=== PATIENT | male | born 1955 | race Caucasian/White ===

== ENCOUNTER 2018-02-14 07:34 | Inpatient (IN) | payer BC ==
--- NOTE | 2018-02-14 08:02 | ED ---
General Adult HPI - General Chief complaint: Chest Pain Stated complaint: Chest Pain Time Seen by Provider: 02/14/18 07:48 Source: patient, RN notes reviewed, old records reviewed Mode of arrival: ambulatory Limitations: no limitations - History of Present Illness Initial comments: 61-year-old male presents for evaluation of chest pain. Patient states that on Tuesday which was 2 days ago he was working outside, he developed some upper chest pain which she described as tightness and this pain subsequently travel to his right arm and bilateral upper back. He had several episodes of vomiting associated with the pain. He did feel lightheaded. He rested throughout the day yesterday, he had some intermittent pain and one episode of nausea and vomiting. This morning the patient again developed pain which was upper substernal chest pain with associated nausea. Patient denies cough. Denies significant dyspnea. Denies abdominal pain. Denies fever or chills. No known history of CAD. No family history. Patient is a nonsmoker. He has no chronic medical problems. - Related Data Home Medications Medication Instructions Recorded Confirmed Levocetirizine Dihydrochloride 5 mg PO DAILY PRN 02/14/18 02/14/18 [Xyzal] Allergies Allergy/AdvReac Type Severity Reaction Status Date / Time No Known Allergies Allergy Verified 02/14/18 09:13 Review of Systems ROS Statement: Those systems with pertinent positive or pertinent negative responses have been documented in the HPI. ROS Other: All systems not noted in ROS Statement are negative. Past Medical History Past Medical History: No Reported History History of Any Multi-Drug Resistant Organisms: None Reported Past Surgical History: No Surgical Hx Reported Past Psychological History: No Psychological Hx Reported Smoking Status: Never smoker Past Alcohol Use History: Occasional Past Drug Use History: None Reported General Exam Limitations: no limitations Course Vital Signs 02/14/18 02/14/18 02/14/18 07:48 08:08 10:02 Temperature 99.0 F Pulse Rate 83 88 108 H Respiratory 18 18 22 Rate Blood Pressure 179/103 153/98 155/96 O2 Sat by Pulse 97 99 95 Oximetry EKG Findings - EKG Comments: EKG Findings:: EKG obtained at 741 shows sinus rhythm with sinus arrhythmia, Q- wave and T-wave inversion in inferior leads, rate of 80, MI interval 1:30, QRS duration 82, QTC [address] segment elevation. Repeat EKG at 1028 shows sinus tachycardia, left axis deviation, persistent signs of inferior infarct with Q waves and T-wave inversion. No ST segment elevation. Ventricular rate of 101, MI interval 1:30, QRS duration 84, QTC 456 Medical Decision Making - Medical Decision Making 62-year-old male presenting with 3 days of chest pain. Pain is typical in nature. EKG shows T-wave inversion and Q waves in the inferior leads. Chest x- ray shows some left basilar atelectasis no other acute findings. Laboratory studies reveal stable hemoglobin, normal kidney function, and significantly elevated troponin at 6.8. Patient is given morphine, aspirin, started on heparin infusion and nitroglycerin infusion. Given the ongoing pain case is discussed with Dr. Berrios from cardiology. He recommended stat echo and the patient will likely undergo heart catheterization today. Case also discussed with on-call physician Dr. Harper who will accept the admission. - Lab Data Result diagrams: 02/14/18 08:02 02/14/18 08:02 Lab Results 02/14/18 02/14/18 02/14/18 Range/Units 08:02 08:02 08:02 WBC 18.6 H (3.8-10.6) k/uL RBC 5.53 (4.30-5.90) m/uL Hgb 16.5 (13.0-17.5) gm/dL Hct 50.1 (39.0-53.0) % MCV 90.5 (80.0-100.0) fL MCH 29.8 (25.0-35.0) pg MCHC 33.0 (31.0-37.0) g/dL RDW 13.5 (11.5-15.5) % Plt Count 228 (150-450) k/uL Neutrophils % 84 % Lymphocytes % 10 % Monocytes % 5 % Eosinophils % 1 % Basophils % 0 % Neutrophils # 15.6 H (1.3-7.7) k/uL Lymphocytes # 1.8 (1.0-4.8) k/uL Monocytes # 0.9 (0-1.0) k/uL Eosinophils # 0.2 (0-0.7) k/uL Basophils # 0.0 (0-0.2) k/uL PT (9.0-12.0) sec INR (<1.2) APTT (22.0-30.0) sec Sodium 144 (137-145) mmol/L Potassium 4.1 (3.5-5.1) mmol/L Chloride 105 (98-107) mmol/L Carbon Dioxide 23 (22-30) mmol/L Anion Gap 16 mmol/L BUN 13 (9-20) mg/dL Creatinine 0.82 (0.66-1.25) mg/dL Est GFR (CKD-EPI)AfAm >90 (>60 ml/min/1.73 sqM) Est GFR (CKD-EPI)NonAf >90 (>60 ml/min/1.73 sqM) Glucose 125 H (74-99) mg/dL Calcium 9.7 (8.4-10.2) mg/dL Magnesium 1.8 (1.6-2.3) mg/dL Total Bilirubin 0.9 (0.2-1.3) mg/dL AST 100 H (17-59) U/L ALT 40 (21-72) U/L Alkaline Phosphatase 67 (38-126) U/L Total Creatine Kinase 502 H (55-170) U/L CK-MB (CK-2) 28.9 H* (0.0-2.4) ng/mL CK-MB (CK-2) Rel Index 5.8 Troponin I 6.810 H* (0.000-0.034) ng/mL NT-Pro-B Natriuret Pep pg/mL Total Protein 7.4 (6.3-8.2) g/dL Albumin 4.4 (3.5-5.0) g/dL Lipase 109 (23-300) U/L 02/14/18 02/14/18 Range/Units 08:02 08:02 WBC (3.8-10.6) k/uL RBC (4.30-5.90) m/uL Hgb (13.0-17.5) gm/dL Hct (39.0-53.0) % MCV (80.0-100.0) fL MCH (25.0-35.0) pg MCHC (31.0-37.0) g/dL RDW (11.5-15.5) % Plt Count (150-450) k/uL Neutrophils % % Lymphocytes % % Monocytes % % Eosinophils % % Basophils % % Neutrophils # (1.3-7.7) k/uL Lymphocytes # (1.0-4.8) k/uL Monocytes # (0-1.0) k/uL Eosinophils # (0-0.7) k/uL Basophils # (0-0.2) k/uL PT 11.1 (9.0-12.0) sec INR 1.2 H (<1.2) APTT 22.0 (22.0-30.0) sec Sodium (137-145) mmol/L Potassium (3.5-5.1) mmol/L Chloride (98-107) mmol/L Carbon Dioxide (22-30) mmol/L Anion Gap mmol/L BUN (9-20) mg/dL Creatinine (0.66-1.25) mg/dL Est GFR (CKD-EPI)AfAm (>60 ml/min/1.73 sqM) Est GFR (CKD-EPI)NonAf (>60 ml/min/1.73 sqM) Glucose (74-99) mg/dL Calcium (8.4-10.2) mg/dL Magnesium (1.6-2.3) mg/dL Total Bilirubin (0.2-1.3) mg/dL AST (17-59) U/L ALT (21-72) U/L Alkaline Phosphatase (38-126) U/L Total Creatine Kinase (55-170) U/L CK-MB (CK-2) (0.0-2.4) ng/mL CK-MB (CK-2) Rel Index Troponin I (0.000-0.034) ng/mL NT-Pro-B Natriuret Pep 1430 pg/mL Total Protein (6.3-8.2) g/dL Albumin (3.5-5.0) g/dL Lipase (23-300) U/L Critical Care Time Critical Care Time: Yes Total Critical Care Time: 35 Disposition Clinical Impression: NSTEMI (non-ST elevated myocardial infarction) Disposition: ADMITTED IP TO THIS [facility] Condition: Stable Is patient prescribed a controlled substance at d/c from ED?: No Referrals: None,Stated [Primary Care Provider] - 1-2 days Decision to Admit Reason: Admit from EC Decision Date: 02/14/18 Decision Time: 10:34
--- NOTE | 2018-02-14 08:15 | XR ---
EXAMINATION TYPE: XR chest 2V DATE OF EXAM: 02/14/2018 COMPARISON: NONE HISTORY: Chest pain TECHNIQUE: Frontal and lateral views of the chest are obtained. FINDINGS: There is no focal air space opacity, pleural effusion, or pneumothorax seen. The cardiac silhouette size is within normal limits. The patient is rotated and there are overlying cardiac leads . Strand-like densities are present at the left lung base. The osseous structures are intact. IMPRESSION: Possible basilar atelectasis or scarring, follow-up as indicated.
[2018-02-14 08:17] LABS: Basophils % (A) 0 %; Eosinophils # (A) 0.2 k/uL (0-0.7); Eosinophils % (A) 1 %; HCT 50.1 % (39.0-53.0); HGB 16.5 gm/dL (13.0-17.5); Lymphocytes # (A) 1.8 k/uL (1.0-4.8); Lymphocytes % (A) 10 %; MCH 29.8 pg (25.0-35.0); MCV 90.5 fL (80.0-100.0); Mean Platelet Volume 7.3; Monocytes # (A) 0.9 k/uL (0-1.0); Monocytes % (A) 5 %; Neutrophils # (A) 15.6 k/uL (1.3-7.7); Neutrophils % (A) 84 %; Platelet Count 228 k/uL (150-450); RBC 5.53 m/uL (4.30-5.90); RDW 13.5 % (11.5-15.5); WBC 18.6 k/uL (3.8-10.6)
[2018-02-14 08:32] LABS: ALT 40 U/L (21-72); AST 100 U/L (17-59); Albumin 4.4 g/dL (3.5-5.0); Alkaline Phosphatase 67 U/L (38-126); Anion Gap 16 mmol/L; Blood Urea Nitrogen 13 mg/dL (9-20); Calcium 9.7 mg/dL (8.4-10.2); Carbon Dioxide 23 mmol/L (22-30); Chloride 105 mmol/L (98-107); Glucose 125 mg/dL (74-99); Lipase 109 U/L (23-300); Magnesium 1.8 mg/dL (1.6-2.3); Potassium 4.1 mmol/L (3.5-5.1); Sodium 144 mmol/L (137-145); Total Bilirubin 0.9 mg/dL (0.2-1.3); Total Protein 7.4 g/dL (6.3-8.2)
[2018-02-14 08:33] LABS: INR 1.2 (<1.2); Prothrombin Time 11.1 sec (9.0-12.0)
[2018-02-14 09:04] LABS: Creatine Kinase MB 28.9 ng/mL (0.0-2.4); Troponin I 6.81 ng/mL (0.000-0.034)
[2018-02-14] MEDS ORDERED: HEPARIN SODIUM,PORCINE 5,000 UNIT/ML 1 ML VIAL IV PRN (09:07)
[2018-02-14] MEDS ORDERED: ASPIRIN 325 MG TAB PO STA (09:07)
[2018-02-14] MEDS ORDERED: HEPARIN SODIUM,PORCINE 5,000 UNIT/ML 1 ML VIAL IV ONE (09:07)
[2018-02-14] MEDS ORDERED: HEPARIN SODIUM,PORCINE/D5W PMX 25,000 UNIT in DEXTROSE/WATER 1 500ML.BAG IV SCH (09:15)
[2018-02-14] MEDS ORDERED: MORPHINE SULFATE 4 MG/ML SYRINGE IVP STA (09:38)
[2018-02-14] MEDS ORDERED: NITROGLYCERIN-D5W PMX 50 MG in DEXTROSE/WATER 1 250ML.BAG IV ONE (09:39)
[2018-02-14] MEDS ORDERED: ATORVASTATIN 80 MG TAB PO STA (09:43)
[2018-02-14] MEDS ORDERED: MORPHINE SULFATE 4 MG/ML SYRINGE IV PRN (10:22)
[2018-02-14] MEDS ORDERED: NALOXONE 0.4 MG/ML 1 ML VIAL IV PRN (10:22)
[2018-02-14 11:26] LABS: Glucose,Whole Blood 132 mg/dL (75-99)
--- NOTE | 2018-02-14 12:07 | ECHOF ---
Referral Reason:CP MEASUREMENTS -------- HEIGHT: 177.8 cm WEIGHT: 99.8 kg BP: RVIDd: 2.9 cm (< 3.3) IVSd: 1.2 cm (0.6 - 1.1) LVIDd: 3.8 cm (3.9 - 5.3) LVPWd: 1.3 cm (0.6 - 1.1) IVSs: 1.6 cm LVIDs: 2.3 cm LVPWs: 1.4 cm LAESV Index (A-L): 9.66 ml/m Ao Diam: 3.2 cm (2.0 - 3.7) AV Cusp: 1.8 cm (1.5 - 2.6) LA Diam: 2.9 cm (2.7 - 3.8) MV E Randell: 0.47 m/s MV DecT: 224 ms MV A Randell: 0.66 m/s MV E/A Ratio: 0.72 RAP: 5.00 mmHg RVSP: 9.51 mmHg FINDINGS -------- Sinus rhythm. This was a technically adequate study. The left ventricular size is normal. There is mild concentric left ventricular hypertrophy. Overa ll left ventricular systolic function is mildly impaired with, an EF between 45 - 50 %. Inferior Hy pokinesis The right ventricle is normal in size and function. Normal LA size by volume 22+/-6 ml/m2. The right atrium is normal in size. The aortic valve is trileaflet, and appears structurally normal. No aortic stenosis or regurgitation. The mitral valve leaflets are mildly thickened. There is trace to mild mitral regurgitation. Trace tricuspid regurgitation present. Right ventricular systolic pressure is normal at < 35 mmHg. There is no evidence of pulmonary hypertension. The pulmonic valve was not well visualized. The aortic root size is normal. Normal inferior vena cava with normal inspiratory collapse consistent with estimated right atrial pre ssure of 5 mmHg. There is no pericardial effusion. CONCLUSIONS -------- 1. Sinus rhythm. 2. This was a technically adequate study. 3. The left ventricular size is normal. 4. There is mild concentric left ventricular hypertrophy. 5. Overall left ventricular systolic function is mildly impaired with, an EF between 45 - 50 %. 6. Inferior Hypokinesis 7. Normal LA size by volume 22+/-6 ml/m2. 8. The aortic valve is trileaflet, and appears structurally normal. No aortic stenosis or regurgitati on. 9. The mitral valve leaflets are mildly thickened. 10. There is trace to mild mitral regurgitation. 11. Trace tricuspid regurgitation present. 12. Right ventricular systolic pressure is normal at < 35 mmHg. 13. There is no evidence of pulmonary hypertension. 14. The pulmonic valve was not well visualized. 15. The aortic root size is normal. 16. There is no pericardial effusion. MARINE INSULATOR: Del Diaz RDCS
[2018-02-14] MEDS ORDERED: LIDOCAINE 2% INJ 20 MG/ML (20 ML MDV) ONE (12:24)
[2018-02-14] MEDS ORDERED: MIDAZOLAM 2 MG/2 ML VIAL ONE (12:24)
[2018-02-14] MEDS ORDERED: diphenhydrAMINE 50 MG/ML 1 ML VIAL ONE (12:24)
[2018-02-14] MEDS ORDERED: MIDAZOLAM 2 MG/2 ML VIAL IVP ONE ×2 (12:39)
[2018-02-14] MEDS ORDERED: diphenhydrAMINE 50 MG/ML 1 ML VIAL IVP ONE (12:39)
[2018-02-14] MEDS ORDERED: IV FLUID CONTINUATION 900 ML IV ONE (12:39)
[2018-02-14] MEDS ORDERED: METOPROLOL TARTRATE 5 MG/5 ML VIAL IVP ONE ×2 (12:40→12:43)
[2018-02-14] MEDS ORDERED: LIDOCAINE 2% INJ 20 MG/ML SQ ONE (12:44)
[2018-02-14] MEDS ORDERED: BIVALIRUDIN BOLUS 250 MG/50 ML IV ONE (12:55)
[2018-02-14] MEDS ORDERED: BIVALIRUDIN 250 MG in SODIUM CHLORIDE 0.9% 50 ML IV ONE ×2 (12:56→14:27)
[2018-02-14] MEDS ORDERED: IOPAMIDOL-370 100ML BTL INJ ONE ×4 (13:00→14:41)
--- NOTE | 2018-02-14 13:04 | CONS ---
CONSULTATION This is a 62-year-old gentleman who works as a general maintenance engineer at the [employer]. He was out on Tuesday shooting carp in the [place] with a bow and arrow and after he finished that, when he was driving home, he felt some uncomfortable feeling and dizzy, lightheaded sensation and a fluttering feeling in the chest. He then had chest pressure, but he thought it would go away and he went to bed. Next day he felt pretty much uncomfortable, nauseated, had some emesis. However, he did not come to the emergency room or seek any medical attention. Finally, he had some upper chest and arm pain as he was doing some physical activity and then came into the hospital. He had some episodes of nausea and vomiting. Substernal discomfort seemed to have recurred again this morning, which got his attention and he came into the hospital. His troponin is elevated, inferior leads on the EKG suggest recent myocardial infarction. He still has some discomfort, but not in any severe distress. It appears that his infarction may have been completed and now has post infarct angina. He is not a smoker. He has no major coronary risk factors. He does not take any regular medications. He is resting comfortably at the time of my evaluation. PAST MEDICAL HISTORY: Unremarkable for any hypertension, diabetes, myocardial infarction or CVA. ALLERGIES: None. MEDICATIONS: He takes some cetirizine dihydrochloride for his allergies. SOCIAL HISTORY: Patient is not a smoker. Consumes alcohol occasionally. REVIEW OF SYSTEMS: Unremarkable other than the above-mentioned facts. EKG revealed sinus mechanism with inferior Q-waves and ST-T coving suggestive of recent inferior AL. No acute changes. LABORATORY DATA: Suggested elevated white count. Troponin is up to 6.8. His electrolytes and renal function are normal. PHYSICAL EXAMINATION: Blood pressure is 140/78, pulse rate is about 90 per minute, regular. HEENT: Unremarkable. Fundus was not examined by me. NECK: Supple. There is no JVD. I do not hear a carotid bruit. There is no thyromegaly. Heart exam reveals S1, S2, heard normally with some occasional irregularity in rhythm. Lungs are clear. Abdomen is soft, nontender. Lower extremities reveal normal pulses. No edema. Central nervous system is normal. IMPRESSION: 1. Completed inferior myocardial infarction with post infarction angina. Onset of chest pain is almost 36 hours ago. Patient still has mild chest discomfort. 2. No evidence of any other major risk factors. RECOMMENDATION: I am recommending that we will continue aspirin, heparin. He has received Lipitor and beta shawn and we will proceed with coronary angiography based on findings, further recommendations will be made. I discussed my thoughts in detail with the patient. Thank you very much for the consult. SHANIKA / ALICE: [id number] /
[2018-02-14] MEDS ORDERED: niCARdipine 25 MG/10 ML VIAL ONE (14:01)
[2018-02-14] MEDS ORDERED: niCARdipine Syringe (1,000 mcg/10 mL) INTRACORON ONE (14:09)
[2018-02-14] MEDS ORDERED: NITROGLYCERIN 1000MCG/10ML SYRINGE INTRACORON ONE (14:15)
[2018-02-14] MEDS ORDERED: NITROGLYCERIN SL TABS 0.4 MG TAB SUBLINGUAL ONE ×2 (14:40→14:41)
[2018-02-14] MEDS ORDERED: TICAGRELOR 90 MG TAB ONE (14:42)
[2018-02-14] MEDS ORDERED: TICAGRELOR 90 MG TAB PO ONE (14:47)
[2018-02-14] MEDS ORDERED: MAG HYDROX/AL HYDROX/SIMETH 30 ML CUP PO PRN (14:49)
[2018-02-14] MEDS ORDERED: NITROGLYCERIN SL TABS 0.4 MG TAB SUBLINGUAL PRN (14:49)
[2018-02-14] MEDS ORDERED: RX INFO: IV CONTRAST WAS GIVEN 1 EACH MISC MISCELLANE PRN (14:49)
[2018-02-14] MEDS ORDERED: ATROPINE SULFATE 0.1 MG/ML 10ML SYRINGE IV PRN (14:49)
[2018-02-14] MEDS ORDERED: ZOLPIDEM 5 MG TAB PO PRN (14:49)
[2018-02-14] MEDS: SODIUM CHLORIDE 0.9% 1,000 ML IV SCH (15:15)
[2018-02-14 16:17] LABS: Creatine Kinase MB 16.7 ng/mL (0.0-2.4)
[2018-02-14 16:18] LABS: Troponin I 7.97 ng/mL (0.000-0.034)
[2018-02-14] MEDS: ATORVASTATIN 80 MG TAB PO SCH (20:23)
--- NOTE | 2018-02-14 21:19 | LTR ---
Dear Dr. Harper: Thank you for for allowing me to participate in the care of Mr. Xavier Stover. Please find enclosed my detailed report for your records. I performed stenting of a dominant RCA and PLV branch. PDA is collateralized from the left system. I will perform staged intervention of the circumflex groove branch. Thank you for your referral. Please call for questions. With kindest regards. Sincerely yours, MMODL / IJN: [id number] /
--- NOTE | 2018-02-14 21:19 | CC ---
CARDIAC CATHETERIZATION REPORT DATE OF SERVICE: 02/14/2018 PROCEDURE: 1. Coronary angiography. 2. 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 PERFORMED BY: Dr. Sun Berrios. Moderate conscious sedation time was 2 hours and 2 minutes. Patient was administered Versed and Benadryl and his oxygen saturation, hemodynamics and EKG were monitored closely. CLINICAL INFORMATION: Mr. Xavier Stover is a 62-year-old gentleman who was seen by me in the emergency room with an episode of chest pain and his clinical presentation suggested that of an acute GA probably 36 hours ago, but he had ongoing chest pain, was therefore advised coronary angiography. There was evidence of inferior Q-waves and inferobasal lateral hypokinesia. Risks, benefits, options were explained to the patient. He understood all details and wished to proceed with the procedure. PROCEDURE NOTE: Under local anesthesia and strict aseptic precautions, a 6-Belizean introducer was placed in the right femoral artery. Using a standard left Chele catheter, I performed selective coronary angiography of the left coronary system, then used a guide catheter for the right coronary. I did not perform an LV-gram or check LV pressures. I noted that his RCA was very large dominant vessel that was totally occluded and the PDA was actually filling from collaterals from the left system. There was also a circumflex a groove branch that had a significant stenosis as well with some haziness. This could have been a culprit lesion, but it was also evident that RCA was a significant lesion as well. It appeared that RCA was a chronic total occlusion and the groove branch that had 2 additional distal branches of circumflex was probably the more acute lesion. However, the flow in the circumflex was brisk. After coronary angiography, I decided to perform intervention and proceeded to perform the SPECIAL TAX AUDITOR intervention of her dominant RCA. PERCUTANEOUS CORONARY ANGIOPLASTY PROCEDURE DETAILS: I used a standard right Chele guide catheter of 6-Belizean caliber. Using a run- through wire, I tried to cross the lesion, did not make much progress. I then switched over to a BMW wire, which was a long one with a wire. With this, I was able to cross the lesion and I gave multiple inflations with a 2.5, 12 mm NC Trek balloon and then switched over to a longer 20 mm 3.0 balloon. With multiple inflations, there was improvement, but there appeared to be a substantial amount of thrombus in the system. After multiple dilations, I decided to place a stent at the site of total occlusion. I used a 3.5 caliber 15 mm long stent in the proximal total occlusion site and beyond that, I used a 23 mm long 3.0 caliber Xience stent. In between, I used a 12 mm Xience stent, but then went on to add another 8 mm between the 15 mm and 12 mm stents. The wire was kept in the PLV branch and then later on in the PDA branch. The PDA branch was already receiving collaterals from the left system. After some deliberation, I noted that there was a subtotal occlusion of the PLV branch and this was addressed with a 2.5 caliber 8 mm Xience stent. I was able to open up the PLV with remarkably good angiographic appearance flow. In the end, there was good angiographic appearance of the entire RCA, both proximal mid and distal portions of the PLV branch, but the PDA seems to have subtotal occlusion, but PDA was already collateralized from the left system. This was a long procedure. I used double wires her initially to gain access and then after that, I was able to deploy several stents. All of these were drug- eluting stents. Very proximally, there was a 3.5 caliber 15 mm stent and very distally in the PLV, there is a 2.5 caliber 8 mm Xience stent. I then tried to advance the wire into the PDA. I was able to do it, but could not advance the stent or a balloon because of considerable difficulty, since the stent in the PLV seems to be right at the origin. Since PDA branch was already collateralized, I decided not persist with it. In the end, excellent angiographic result was achieved of the LAD and PLV, but PDA was totally occluded with collateralization of the left system. Several drug-eluting stents were deployed. CORONARY ANGIOGRAPHY FINDINGS: Left main coronary artery: This vessel is short, patent, bifurcates into LAD and circumflex without significant disease. Left anterior descending coronary artery: Good caliber vessel extends along the anterior wall, gives off septal and diagonal branches, has minor irregularities, gives off a fair-sized diagonal branch in the midportion, runs toward the apex and supplies the distal and inferoapical wall. There are several septal branches from the LAD that are collateralizing the entire PDA branch of RCA. Left posterior circumflex coronary artery: This is a nondominant vessel, gives off a single large obtuse marginal, then there is a groove branch. The groove branch has about a 70% stenosis with haziness which may be the culprit lesion. This then subdivides into 2 smaller branches. It appears that the groove branch maybe also the culprit vessel. The 2 small branches are of about 2 mm length and supplies a fair amount of myocardium and the groove branch itself is about 2.5 caliber. There is a left atrial circumflex that is free of significant disease as well. Right coronary artery: This is a very dominant vessel, totally occluded in the proximal portion after 2 small acute marginal branches. The RCA is collateralized from the left system with the PDA filling from the septal branches of LAD. FINAL IMPRESSION: 1. This patient has total occlusion of a dominant right coronary artery, which is probably a chronic total occlusion, and also is 80% stenosis in the groove branch of circumflex as well, which subdivides into 2 further branches. Left anterior descending has no significant disease and I did not check LV pressures. 2. Percutaneous intervention of his chronic total occlusion of the right coronary artery was performed with excellent result. The posterior descending artery was not opened up, but it was filling from collaterals from the left system. 3. Results were discussed with the patient and his family members, specifically his . SHANIKA / ALICE: [id number] /
--- NOTE | 2018-02-14 21:33 | HP ---
HISTORY AND PHYSICAL CHIEF COMPLAINT: Non-STEMI. HISTORY OF PRESENT ILLNESS: This is the first admission for this 62-year-old white male, [place] he felt a little bit dizzy on Tuesday. He felt a little discomfort in the sternal notch and some pain in the back of both of his upper arms. He decided that he should drive back to [place] which he did alone. At one point, the pain got worse and he had to picker/puller. He had slight nausea and diaphoresis and a little bit of epigastric pain. He went home and felt a little bit worse during the night and came in the morning and was found to have an acute non ST-segment elevation FL. He was taken to the boat laborer, where apparently there were 5 significant blockages. Four of which were stented and he may require 2nd sitting for the other. Otherwise, he has been healthy. He has not had anything abnormal lately and he does not go to doctor and does not take any medications. REVIEW OF SYSTEMS: He has had no neurologic problems, change in vision or hearing, hemoptysis, murmurs, fever, heart disease, orthopnea, PND, nausea, vomiting, hematemesis, melena, hematochezia, jaundice, hepatitis, pancreatitis, renal failure, diabetes, etc. Past medical history, family history, personal and social histories are essentially unremarkable and noncontributory. He is not allergic to any medication. He does not take any. The only surgery he has had is a procedure on his right knee and appendectomy. He does not smoke. Drinks occasionally. He does not know by his family history because he is adopted. 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 PHYSICAL EXAMINATION: Blood pressure is 111/80, pulse 73, respirations of 20, he is afebrile. GENERAL: In general, appeared to be well developed, well nourished, no acute distress. SKIN color is normal skin is warm, dry. LYMPH nodes not enlarged. HEENT: Head, ears, eyes, nose, mouth, and throat were normal. NECK veins not distended. Thyroid is not enlarged. CHEST is clear. CARDIAC exam is normal. ABDOMEN is soft, nontender. EXTREMITIES: Normal. NEUROLOGICAL is intact. IMPRESSION: Non-ST elevation myocardial infarction. PLAN: Continue to follow with Cardiology. He may require another sitting. The lipid profile has been ordered. MMODL / IJN: [id number] /
[2018-02-14 21:44] LABS: Creatine Kinase MB 12.6 ng/mL (0.0-2.4); Troponin I 7.91 ng/mL (0.000-0.034)
[2018-02-15 04:12] LABS: Basophils % (A) 0 %; Eosinophils % (A) 0 %; HGB 14.2 gm/dL (13.0-17.5); Lymphocytes # (A) 1.6 k/uL (1.0-4.8); Lymphocytes % (A) 12 %; MCH 30.7 pg (25.0-35.0); MCHC 33.8 g/dL (31.0-37.0); MCV 90.6 fL (80.0-100.0); Mean Platelet Volume 7.6; Monocytes # (A) 1.2 k/uL (0-1.0); Monocytes % (A) 9 %; Neutrophils # (A) 10.7 k/uL (1.3-7.7); Neutrophils % (A) 78 %; Platelet Count 194 k/uL (150-450); RBC 4.64 m/uL (4.30-5.90); RDW 13.4 % (11.5-15.5); WBC 13.8 k/uL (3.8-10.6)
[2018-02-15 04:15] LABS: Hemoglobin A1C 5.6 % (4.0-6.0)
[2018-02-15 04:34] LABS: Anion Gap 10 mmol/L; Blood Urea Nitrogen 14 mg/dL (9-20); Calcium 8.8 mg/dL (8.4-10.2); Carbon Dioxide 26 mmol/L (22-30); Chloride 105 mmol/L (98-107); Cholesterol 118 mg/dL (<200); Glucose 110 mg/dL (74-99); HDL Cholesterol 36 mg/dL (40-60); LDL Cholesterol,Calculated 65 mg/dL (0-99); Potassium 4.1 mmol/L (3.5-5.1); Sodium 141 mmol/L (137-145); Triglycerides 83 mg/dL (<150)
[2018-02-15] MEDS: SODIUM CHLORIDE 0.9% 1,000 ML IV SCH (06:57)
[2018-02-15] MEDS: ASPIRIN 81 MG PO SCH (09:05)
[2018-02-15] MEDS: LISINOPRIL 10 MG TAB PO SCH (09:05)
[2018-02-15] MEDS: TICAGRELOR 90 MG TAB PO SCH ×2 (09:06→20:46)
[2018-02-15] MEDS: DILTIAZEM 50 MG in SODIUM CHLORIDE 0.9% 40 ML IV SCH ×5 (10:32→20:48)
[2018-02-15 11:10] LABS: Magnesium 2.1 mg/dL (1.6-2.3); Potassium 3.8 mmol/L (3.5-5.1)
[2018-02-15] MEDS ORDERED: DEXTROSE 5% IN WATER 100 ML with AMIODARONE 150 MG IV ONE (12:35)
[2018-02-15] MEDS ORDERED: POTASSIUM CHLORIDE ER 20 MEQ TAB.ER PO STA (12:40)
[2018-02-15] MEDS: AMIODARONE 450 MG in DEXTROSE 5% IN WATER 250 ML IV SCH ×4 (14:59→22:48)
--- NOTE | 2018-02-15 17:16 | PN ---
PROGRESS NOTE Mr. Stover suffered from an acute inferior OH probably in the last 72 hours. Yesterday I performed stenting of a totally occluded RCA with a good result. He was asymptomatic. Doing well. His right groin is clean and dry. Vital signs stable, but he went into atrial fib this morning. Troponin profile suggests no additional myocardial injury. His troponin was 6.8, went up to 7.9. He is in atrial fib, moderate ventricular rate. I am recommending that we give him Cardizem bolus and drip and also amiodarone to see if he will convert to sinus rhythm. His vital signs are stable. S1-S2 heard normally. Lungs are clear. Abdomen and lower extremity exam is unchanged. I will also repeat an echocardiogram tomorrow and we will continue his current medications and see how he does. I explained to the patient and that we will consider circumflex intervention, but we will see how he progresses. He is now in atrial fib. Rate control is moderate and renal function is well preserved. EKG and labs were reviewed. MMROYAL / IJN: [id number] /
--- NOTE | 2018-02-15 20:16 | PN ---
PROGRESS NOTE CHIEF COMPLAINT: Status post KS. HISTORY OF PRESENT ILLNESS: This gentleman is comfortable and he has had no palpitations, chest pain, shortness of breath, arrhythmias, etc. PHYSICAL EXAM: Skin is warm and dry. Head ears, eyes, nose, mouth and throat are normal. Chest is clear. Cardiac is normal. Right leg is normal. IMPRESSION: Status post acute myocardial infarction with coronary artery stents. PLAN: Increase activity. He can probably move to telemetry. He has another procedure coming up later in the week. MMODL / IJN: [id number] /
[2018-02-15] MEDS: ATORVASTATIN 80 MG TAB PO SCH (20:46)
[2018-02-16 05:55] LABS: Anion Gap 9 mmol/L; Blood Urea Nitrogen 16 mg/dL (9-20); Calcium 8.9 mg/dL (8.4-10.2); Carbon Dioxide 26 mmol/L (22-30); Chloride 105 mmol/L (98-107); Glucose 111 mg/dL (74-99); Potassium 3.8 mmol/L (3.5-5.1); Sodium 140 mmol/L (137-145)
[2018-02-16 05:58] LABS: Basophils % (A) 0 %; Eosinophils # (A) 0.1 k/uL (0-0.7); Eosinophils % (A) 1 %; HCT 41.6 % (39.0-53.0); HGB 13.9 gm/dL (13.0-17.5); Lymphocytes # (A) 1.6 k/uL (1.0-4.8); Lymphocytes % (A) 12 %; MCH 30.7 pg (25.0-35.0); MCHC 33.4 g/dL (31.0-37.0); MCV 91.9 fL (80.0-100.0); Mean Platelet Volume 7.3; Monocytes # (A) 0.9 k/uL (0-1.0); Monocytes % (A) 7 %; Neutrophils # (A) 10.2 k/uL (1.3-7.7); Neutrophils % (A) 78 %; Platelet Count 203 k/uL (150-450); RBC 4.53 m/uL (4.30-5.90); RDW 13.5 % (11.5-15.5)
[2018-02-16] MEDS: DILTIAZEM 50 MG in SODIUM CHLORIDE 0.9% 40 ML IV SCH ×3 (06:08→12:08)
[2018-02-16] MEDS ORDERED: POTASSIUM CHLORIDE ER 20 MEQ TAB.ER PO SCH (07:00)
[2018-02-16] MEDS: AMIODARONE 450 MG in DEXTROSE 5% IN WATER 250 ML IV SCH ×2 (07:11)
[2018-02-16] MEDS: TICAGRELOR 90 MG TAB PO SCH ×2 (08:38→20:12)
[2018-02-16] MEDS: ASPIRIN 81 MG PO SCH (08:38)
[2018-02-16] MEDS: LISINOPRIL 10 MG TAB PO SCH (08:38)
[2018-02-16] MEDS ORDERED: MORPHINE ORAL SOLN 10 MG/5 ML CUP PO PRN (10:40)
[2018-02-16] MEDS: AMIODARONE 200 MG TAB PO SCH ×2 (10:45→20:11)
--- NOTE | 2018-02-16 16:50 | PN ---
PROGRESS NOTE DATE OF SERVICE: 02/16/2018. HISTORY: Mr. Stover is a gentleman who underwent stenting of the right coronary artery chronic total occlusion. He is doing well. He was in atrial fib yesterday, he is back to sinus rhythm Hemodynamically stable. Right groin is clean and dry. He also has a circumflex lesion which requires intervention. I am recommending that we switch him from IV to p.o. amiodarone, decrease the lisinopril to 5 mg daily, start him on Coreg 3.125 mg b.i.d., continue telemetry, continue the rest of his other medications, and move him to telemetry and consider performing intervention of the circumflex after checking the patency of RCA on Tuesday. PHYSICAL EXAM: There are no new significant findings. Vital signs are stable. S1 and S2 heard normally. Lungs are clear. Abdomen and lower extremities are unchanged. Right groin is clean and dry. MMODL / IJN: [id number] /
[2018-02-16] MEDS: CARVEDILOL 3.125 MG TAB PO SCH (17:14)
--- NOTE | 2018-02-16 18:08 | PN ---
PROGRESS NOTE DATE OF SERVICE: 02/16/2018. CHIEF COMPLAINT: Acute [place]. HISTORY OF PRESENT ILLNESS: This gentleman is doing well. He is having an echocardiogram today. He is having no pain. He has had no arrhythmias. PHYSICAL EXAM: Vital signs are normal. Color is good. Chest is clear. Cardiac exam is normal. The abdomen is soft, nontender. IMPRESSION: 1. Status post myocardial infarction. 2. Coronary artery disease. PLAN: He is to have another procedure for the circumflex later in the week. He will have echocardiogram today. MMODL / IJN: [id number] /
--- NOTE | 2018-02-16 20:02 | ECHOF ---
Referral Reason:to assess cardiac function MEASUREMENTS -------- HEIGHT: 177.8 cm WEIGHT: 104.8 kg BP: 109/69 RVIDd: 3.0 cm (< 3.3) IVSd: 1.1 cm (0.6 - 1.1) LVIDd: 3.1 cm (3.9 - 5.3) LVPWd: 1.0 cm (0.6 - 1.1) IVSs: 1.4 cm LVIDs: 2.5 cm LVPWs: 1.4 cm Ao Diam: 3.1 cm (2.0 - 3.7) AV Cusp: 2.1 cm (1.5 - 2.6) LA Diam: 2.7 cm (2.7 - 3.8) FINDINGS -------- Sinus rhythm. This was a technically adequate study. Limited Study for assessment of left ventricular function. The left ventricular size is normal. There is borderline concentric left ventricular hypertrophy. Overall left ventricular systolic function is normal with, an EF between 55 - 60 %. The right ventricle is normal in size and function. There is no pericardial effusion. CONCLUSIONS -------- 1. Sinus rhythm. 2. This was a technically adequate study. 3. Limited Study for assessment of left ventricular function. 4. The left ventricular size is normal. 5. There is borderline concentric left ventricular hypertrophy. 6. Overall left ventricular systolic function is normal with, an EF between 55 - 60 %. 7. There is no pericardial effusion. FLOTATION TANK OPERATOR: Del Diaz [facility]
[2018-02-16] MEDS: ATORVASTATIN 80 MG TAB PO SCH (20:11)
[2018-02-16] MEDS ORDERED: LISINOPRIL 5 MG TAB PO SCH (21:00)
[2018-02-17 04:29] LABS: Basophils % (A) 0 %; Eosinophils # (A) 0.3 k/uL (0-0.7); Eosinophils % (A) 2 %; HCT 40.2 % (39.0-53.0); HGB 13.5 gm/dL (13.0-17.5); Lymphocytes # (A) 1.5 k/uL (1.0-4.8); Lymphocytes % (A) 11 %; MCH 30.3 pg (25.0-35.0); MCHC 33.5 g/dL (31.0-37.0); MCV 90.6 fL (80.0-100.0); Mean Platelet Volume 7.6; Monocytes % (A) 7 %; Neutrophils # (A) 10.8 k/uL (1.3-7.7); Neutrophils % (A) 79 %; Platelet Count 207 k/uL (150-450); RBC 4.44 m/uL (4.30-5.90); RDW 13.5 % (11.5-15.5); WBC 13.8 k/uL (3.8-10.6)
[2018-02-17 04:39] LABS: Anion Gap 11 mmol/L; Blood Urea Nitrogen 18 mg/dL (9-20); Calcium 9.2 mg/dL (8.4-10.2); Carbon Dioxide 25 mmol/L (22-30); Chloride 105 mmol/L (98-107); Glucose 107 mg/dL (74-99); Potassium 3.9 mmol/L (3.5-5.1); Sodium 141 mmol/L (137-145)
[2018-02-17] MEDS: AMIODARONE 200 MG TAB PO SCH ×2 (08:32→20:10)
[2018-02-17] MEDS: ASPIRIN 81 MG PO SCH (08:35)
[2018-02-17] MEDS: TICAGRELOR 90 MG TAB PO SCH ×2 (08:35→20:10)
[2018-02-17] MEDS: CARVEDILOL 3.125 MG TAB PO SCH ×2 (08:35→17:33)
[2018-02-17] MEDS: SODIUM CHLORIDE 0.9% 1,000 ML IV SCH ×2 (10:55→21:00)
[2018-02-17] MEDS ORDERED: ALPRAZolam 0.5 MG TAB PO PRN (11:06)
[2018-02-17] MEDS ORDERED: ALPRAZolam 0.25 MG TAB PO PRN (11:06)
--- NOTE | 2018-02-17 15:51 | PN ---
PROGRESS NOTE Mr. Stover is doing very well. This gentleman underwent stenting of a totally occluded RCA that was performed. LV function is good. He feels well. His blood pressure is somewhat low. I will discontinue lisinopril. Increase oral fluids. Increase activity. Move him to telemetry and tomorrow I will perform intervention of his circumflex vessel which is a groove branch which has significant amount of myocardium being supplied by it. I will perform procedure from the right radial approach. Rationale, risks, benefits and options were explained to patient and his . They understand and wish to proceed with the procedure. MMODL / IJN: [id number] /
--- NOTE | 2018-02-17 17:03 | PN ---
PROGRESS NOTE DATE OF SERVICE: 02/17/2018 CHIEF COMPLAINT: Acute [place]. HISTORY OF PRESENT ILLNESS: This gentleman is doing well and he is stable. He is going for another stent tomorrow. PHYSICAL EXAMINATION: CHEST: Clear. Cardiac exam is normal. Abdomen is soft, nontender. There are no murmurs and he is in sinus rhythm. Vital signs are normal. IMPRESSION: Coronary artery disease. PLAN: Second stenting tomorrow. MMODL / IJN: [id number] /
[2018-02-17] MEDS: ATORVASTATIN 80 MG TAB PO SCH (20:10)
[2018-02-18] MEDS: CARVEDILOL 3.125 MG TAB PO SCH ×2 (06:28→18:15)
[2018-02-18] MEDS: AMIODARONE 200 MG TAB PO SCH ×2 (06:28→21:01)
[2018-02-18] MEDS: SODIUM CHLORIDE 0.9% 1,000 ML IV SCH ×3 (06:28→18:15)
[2018-02-18] MEDS: ASPIRIN 81 MG PO SCH (06:29)
[2018-02-18] MEDS: TICAGRELOR 90 MG TAB PO SCH ×2 (06:29→21:01)
[2018-02-18 06:43] LABS: Basophils % (A) 0 %; Eosinophils # (A) 0.2 k/uL (0-0.7); Eosinophils % (A) 1 %; HCT 39.6 % (39.0-53.0); Lymphocytes # (A) 1.6 k/uL (1.0-4.8); Lymphocytes % (A) 11 %; MCH 30.5 pg (25.0-35.0); MCHC 32.8 g/dL (31.0-37.0); Mean Platelet Volume 7.2; Monocytes # (A) 0.9 k/uL (0-1.0); Monocytes % (A) 6 %; Neutrophils # (A) 11.2 k/uL (1.3-7.7); Neutrophils % (A) 80 %; Platelet Count 231 k/uL (150-450); RBC 4.26 m/uL (4.30-5.90); RDW 13.4 % (11.5-15.5)
[2018-02-18 13:30] VITALS: BMI 32.5
[2018-02-18] MEDS ORDERED: LIDOCAINE 2% INJ 20 MG/ML (20 ML MDV) ONE (13:39)
[2018-02-18] MEDS ORDERED: VERAPAMIL 2.5 MG/ML 2 ML AMP ONE ×2 (13:39→13:40)
[2018-02-18] MEDS ORDERED: SODIUM CHLORIDE 0.9% 1,000 ML IV ONE (13:49)
[2018-02-18] MEDS ORDERED: MIDAZOLAM 2 MG/2 ML VIAL ONE (13:51)
[2018-02-18] MEDS ORDERED: diphenhydrAMINE 50 MG/ML 1 ML VIAL ONE (13:51)
[2018-02-18] MEDS ORDERED: HEPARIN SODIUM 1,000 UN/ML (10ML VL) ONE (13:53)
--- NOTE | 2018-02-18 13:53 | PN ---
PROGRESS NOTE CHIEF COMPLAINT: Coronary artery disease. HISTORY OF PRESENT ILLNESS: This gentleman is resting and having no problems. He awaits his second procedure. PHYSICAL EXAMINATION: Deferred because the patient is currently asleep. IMPRESSION: Coronary artery disease, status post myocardial infarction. PLAN: Await second procedure. SHANIKA / MAGALYN: [id number] /
[2018-02-18] MEDS ORDERED: diphenhydrAMINE 50 MG/ML 1 ML VIAL IVP ONE (13:56)
[2018-02-18] MEDS ORDERED: MIDAZOLAM 2 MG/2 ML VIAL IVP ONE (14:08)
[2018-02-18] MEDS ORDERED: LIDOCAINE 2% INJ 20 MG/ML SQ ONE ×2 (14:08→15:02)
[2018-02-18] MEDS: VERAPAMIL SYRINGE (5 MG/10 ML) INTRAARTER ONE ×2 (14:09→14:51)
[2018-02-18] MEDS ORDERED: BIVALIRUDIN BOLUS 250 MG/50 ML IV ONE (14:21)
[2018-02-18] MEDS ORDERED: BIVALIRUDIN 250 MG in SODIUM CHLORIDE 0.9% 50 ML IV ONE ×2 (14:21→15:01)
[2018-02-18] MEDS ORDERED: IOPAMIDOL-370 125ML BTL INJ ONE (14:30)
[2018-02-18] MEDS: NITROGLYCERIN 1000MCG/10ML SYRINGE INTRAARTER ONE ×3 (14:54→16:17)
[2018-02-18] MEDS ORDERED: IOPAMIDOL-370 100ML BTL INJ ONE ×2 (15:20→16:18)
[2018-02-18] MEDS ORDERED: TICAGRELOR 90 MG TAB ONE (16:34)
[2018-02-18] MEDS ORDERED: TICAGRELOR 90 MG TAB PO ONE (16:35)
[2018-02-18] MEDS ORDERED: ATROPINE SULFATE 0.1 MG/ML 10ML SYRINGE IV PRN (16:57)
[2018-02-18] MEDS ORDERED: MAG HYDROX/AL HYDROX/SIMETH 30 ML CUP PO PRN (16:57)
[2018-02-18] MEDS ORDERED: NITROGLYCERIN SL TABS 0.4 MG TAB SUBLINGUAL PRN (16:57)
[2018-02-18] MEDS ORDERED: RX INFO: IV CONTRAST WAS GIVEN 1 EACH MISC MISCELLANE PRN (16:57)
[2018-02-18] MEDS ORDERED: ZOLPIDEM 5 MG TAB PO PRN (16:57)
--- NOTE | 2018-02-18 17:41 | PTCA ---
PERCUTANEOUSTRANS CORORONARY ANGIOGRAPHY DATE OF SERVICE: 02/18/2018. PROCEDURES: 1. Percutaneous transluminal coronary angioplasty and stenting of mid circumflex coronary artery, which was actually a groove branch, with a drug-eluting stent and a bare metal stent. 2. Percutaneous transluminal coronary angioplasty and stenting of mid right coronary artery with a drug-eluting stent. PERFORMED BY: Dr. Bentley Berrios. Moderate conscious sedation time was 138 minutes. Patient was administered Versed, Benadryl, and oxygen saturation and hemodynamics and EKG were monitored closely. CLINICAL INFORMATION: Mr. Xavier Stover is a gentleman who presented earlier in the week with a non-ST- elevation VT or probably after a myocardial infarction that occurred 48 hours prior to arrival, when he was found to have a totally occluded RCA that was stented on the of this month. There was a PDA branch that was subtotally occluded but was collateralized from the left system. I brought him in for a staged intervention of circumflex, which was also a significant lesion. I advised the patient I will try from the right radial approach. PROCEDURE NOTE: Under local anesthesia and strict aseptic precautions, a 6-Moroccan introducer was placed in the right radial artery. Using a 3.5 curved right Chele catheter, I performed selective coronary angiography and noted that the RCA was patent, but in the mid portion there was about a 60% to 70% narrowing within a previously placed stent. I then turned my attention to the left circumflex coronary artery. Initially I used an Ikari 3.5 curved guide. With this I was able to cannulate the left coronary artery. Using a run-through wire, I crossed the lesion and wire was kept distally. I had considerable difficulty getting into the mid circumflex lesion, which had a 99% stenosis. The wire kept going to the obtuse marginal branch or into a groove branch. Finally I could not advance any balloon, but with a 1.5 balloon I gave 2 inflations and I had difficulty with the guide support. I switched over to an XB LAD guide catheter. With this I had difficulty advancing the guide because of significant spasm in the radial and brachial artery. I then changed over to the femoral approach. Under local anesthesia and strict aseptic precautions, a 6-Moroccan introducer was placed in the right femoral artery. I used a standard left Chele guide catheter to cannulate the left coronary artery. Using a BMW wire, with great difficulty I crossed the subtotal occlusion in the mid circumflex after the obtuse marginal branch. With a 2.0 NC Trek balloon, I gave initial dilatation. This vessel bifurcated into 2 more branches and the lesion extended into one of the branches. I then advanced and deployed a 2.0 caliber 8 mm long Mini Vision stent into this small vessel. There was a good angiographic result achieved, but the ostium still had a lesion and a secondary branch that came up from the circumflex was totally occluded. The proximal portion of the lesion as it came off the circumflex was addressed with a 2.25 caliber 8 mm long Xience stent. Excellent angiographic result was achieved. A small branch that came from this circumflex was occluded with very limited flow. Eventually an excellent angiographic result was achieved. I then turned my attention to the RCA. Standard right Chele guide catheter with a BMW wire was used to cross the lesion. I advanced a 15 mm balloon, but I felt that I should use a larger balloon. I tried to switch over to a larger stent of 18 mm length. I had difficulty advancing it. I then came back with the same 15 mm Xience stent and deployed this in the distal lesion with excellent angiographic result. Proximal to it also there was some haziness and I used the same balloon with a high pressure of 13 atmospheres. I inflated within the previously placed stent. Excellent angiographic result was achieved. The sheath was taken out and Angio-Seal device used to secure hemostasis. I used a TR band for the right radial site. Oxygen saturation was 95%. Patient received an additional dose of Brilinta of 90 mg. He also received Angiomax bolus and infusion as per protocol. Excellent angiographic result was achieved. I discussed the results with the patient and family. I expect that he will be discharged in the next 24 to 36 hours. Excellent angiographic result was achieved without of both the RCA and circumflex. MMODL / IJN: [id number] /
[2018-02-18] MEDS: ATORVASTATIN 80 MG TAB PO SCH (21:01)
[2018-02-19 06:30] LABS: Basophils % (A) 0 %; Eosinophils # (A) 0.2 k/uL (0-0.7); Eosinophils % (A) 2 %; HCT 34.6 % (39.0-53.0); HGB 11.2 gm/dL (13.0-17.5); Lymphocytes # (A) 1.3 k/uL (1.0-4.8); Lymphocytes % (A) 11 %; MCH 29.6 pg (25.0-35.0); MCHC 32.4 g/dL (31.0-37.0); MCV 91.3 fL (80.0-100.0); Mean Platelet Volume 7.4; Monocytes # (A) 0.9 k/uL (0-1.0); Monocytes % (A) 7 %; Neutrophils # (A) 9.6 k/uL (1.3-7.7); Neutrophils % (A) 79 %; Platelet Count 253 k/uL (150-450); RBC 3.79 m/uL (4.30-5.90); RDW 13.4 % (11.5-15.5); WBC 12.2 k/uL (3.8-10.6)
[2018-02-19 06:44] LABS: Anion Gap 11 mmol/L; Blood Urea Nitrogen 13 mg/dL (9-20); Calcium 8.6 mg/dL (8.4-10.2); Carbon Dioxide 22 mmol/L (22-30); Chloride 107 mmol/L (98-107); Glucose 100 mg/dL (74-99); Potassium 4.3 mmol/L (3.5-5.1); Sodium 140 mmol/L (137-145)
[2018-02-19] MEDS: CARVEDILOL 3.125 MG TAB PO SCH ×2 (06:49→17:35)
[2018-02-19] MEDS: SODIUM CHLORIDE 0.9% 1,000 ML IV SCH (07:00)
[2018-02-19] MEDS: ASPIRIN 81 MG PO SCH (08:46)
[2018-02-19] MEDS: TICAGRELOR 90 MG TAB PO SCH (08:46)
[2018-02-19] MEDS: AMIODARONE 200 MG TAB PO SCH (08:46)
[2018-02-19 11:33] VITALS: PULSE 85; RESP 16
[2018-02-19 12:45] VITALS: BP 105/61; TEMP 98.7
--- NOTE | 2018-02-19 16:37 | PN ---
PROGRESS NOTE Mr. Stover is doing remarkably well. He has no symptoms of chest pain. The right radial cath site and right groin is clean and dry with a good pulse. Vital signs are stable. S1-S2 heard normally. Lungs are clear. Abdomen and lower extremity exam is unchanged. This patient can be discharged today. I have given him discharge instructions regarding activity, diet, medications, advised to see me next Tuesday. I will call and make the necessary appointments. Advised not to do any strenuous activity until I see him in the office. He should take dual antiplatelet therapy and statins. I expect the patient to be discharged later on this evening if he remains stable. MMODL / IJN: [id number] /
--- NOTE | 2018-02-19 20:34 | DS ---
DISCHARGE SUMMARY CHIEF COMPLAINT: Chest pain. HISTORY OF PRESENT ILLNESS AND PHYSICAL EXAM: The details of this man's history and physical can be found in the initial workup. LABORATORY STUDIES: While he was in the hospital, he had laboratory studies, details which can be found in the laboratory section of chart. COURSE IN HOSPITAL: After admission, he was taken to the laboratory tester where 3 stents were placed. It was felt that he required further intervention, but the delay was required because of the dye load he received at the first sitting. Postoperatively, he had no problems including chest pain, arrhythmias, etc. and did well. He was taken back to the laboratory tester on the where another stent was placed in the RCA and two in the circumflex. Postoperatively, He did well and cardiology felt he could go home on the . He will go home on light activity about the house and he will follow up with Cardiology as well as our office. FINAL DIAGNOSES: 1. Acute myocardial infarction. 2. Extensive coronary artery disease. 3. Arteriosclerotic cardiovascular disease. OPERATIONS: Two sittings with cardiac cath and stent placement. CONSULTATIONS: Cardiology. He is improved. MMODL / IJN: [id number] /
== END 2018-02-19 17:42 | disposition home or self-care (01) | DRG 246 ==
LOC: EC 07:34 → 6ICU 10:25 → 6SEL 02-17 17:58
PROVIDERS: ADMIT Family Medicine; ATTEND Family Medicine
PROC: 4A023N7 Measurement of Cardiac Sampling and Pressure, Left Heart, Percutaneous Approach (ICD-10-PCS; principal; 2018-02-14 12:18)
PROC: B2111ZZ Fluoroscopy of Multiple Coronary Arteries using Low Osmolar Contrast (ICD-10-PCS; principal; 2018-02-14 12:18)
PROC: 027037Z Dilation of Coronary Artery, One Artery with Four or More Drug-eluting Intraluminal Devices, Percutaneous Approach (ICD-10-PCS; principal; 2018-02-14 12:18)
PROC: 027135Z Dilation of Coronary Artery, Two Arteries with Two Drug-eluting Intraluminal Devices, Percutaneous Approach (ICD-10-PCS; 2018-02-18 13:30)
PROC: 02703DZ Dilation of Coronary Artery, One Artery with Intraluminal Device, Percutaneous Approach (ICD-10-PCS; 2018-02-18 13:30)
DX: I21.4 Non-ST elevation (NSTEMI) myocardial infarction (principal); I23.7 Postinfarction angina; J98.11 Atelectasis; I25.10 Atherosclerotic heart disease of native coronary artery without angina pectoris; I48.91 Unspecified atrial fibrillation
CPT/HCPCS: 36415; 71046; 80048; 80053; 80061; 82550; 82553; 83036; 83690; 83735; 83880; 84132; 84484; 85025; 85610; 85730; 93306; 93308; 93454; 94760; 96365; 96368; 96375; 96376; 99291

== ENCOUNTER 2019-01-24 10:58 | Emergency (ER) | payer BC, OTHER ==
[2019-01-24] MEDS ORDERED: SODIUM CHLORIDE 0.9% 500 ML 500 ML IV STA (11:46)
[2019-01-24] MEDS ORDERED: SODIUM CHLORIDE 0.9% 1,000 ML IV STA (11:46)
[2019-01-24] MEDS ORDERED: DIPHENOX-ATROP 2.5-0.025 MG 1 EACH TAB PO STA (11:46)
--- NOTE | 2019-01-24 11:59 | ED ---
General Adult HPI - General Chief complaint: Dizziness Stated complaint: flu like symptoms Time Seen by Provider: 01/24/19 11:15 Source: patient, RN notes reviewed Limitations: no limitations - History of Present Illness Initial comments: This is a 63-year-old male who presents emergency Department complaining of diarrhea since Tuesday. Patient states on Tuesday afternoon he got up to go but the dog out and got very dizzy and then he passed out. Patient states she's been dizzy ever since but is not passed out per patient denies having any chest pain palpitations difficulty breathing shortest breath at any point time. She denies any head injury or any neck injury. Patient denies any numbness weakness. Patient denies any abdominal pain. Patient denies any nausea or vomiting. - Related Data Previous Rx's Medication Instructions Recorded Aspirin 81 mg PO DAILY #100 chew 02/19/18 Atorvastatin [Lipitor] 80 mg PO HS #30 tab 02/19/18 Carvedilol [Coreg] 3.125 mg PO BID-W/MEALS #60 tab 02/19/18 Ticagrelor [Brilinta] 90 mg PO BID #60 tab 02/19/18 Allergies Allergy/AdvReac Type Severity Reaction Status Date / Time No Known Allergies Allergy Verified 01/24/19 11:33 Review of Systems ROS Statement: Those systems with pertinent positive or pertinent negative responses have been documented in the HPI. ROS Other: All systems not noted in ROS Statement are negative. Past Medical History Past Medical History: Myocardial Infarction ([place]) Additional Past Medical History / Comment(s): R wrist fracture-casted/healed. History of Any Multi-Drug Resistant Organisms: None Reported Past Surgical History: Appendectomy, Heart Catheterization With Stent Additional Past Surgical History / Comment(s): colonoscopy Past Anesthesia/Blood Transfusion Reactions: No Reported Reaction Past Psychological History: No Psychological Hx Reported Smoking Status: Light tobacco smoker Past Alcohol Use History: None Reported Past Drug Use History: None Reported - Past Family History Father Family Medical History: No Reported History Additional Family Medical History / Comment(s): Father is at age 76yrs. Pt does not recall cause of . Mother Family Medical History: Congestive Heart Failure (CHF) Additional Family Medical History / Comment(s): Mother at the age of 95 or 96yrs. General Exam - General Exam Comments Initial Comments: GENERAL: Patient is well-developed and well-nourished. Patient is nontoxic and well- hydrated and is in mild distress. ENT: Neck is soft and supple. No significant lymphadenopathy is noted. Oropharynx is clear. Moist mucous membranes. Neck has full range of motion without eliciting any pain. EYES: The sclera were anicteric and conjunctiva were pink and moist. Extraocular movements were intact and pupils were equal round and reactive to light. Eyelids were unremarkable. PULMONARY: Unlabored respirations. Good breath sounds bilaterally. No audible rales rhonchi or wheezing was noted. CARDIOVASCULAR: There is a regular rate and rhythm without any murmurs gallops or rubs. ABDOMEN: Soft and nontender with normal bowel sounds. No palpable organomegaly was noted. There is no palpable pulsatile mass. SKIN: Skin is clear with no lesions or rashes and otherwise unremarkable. NEUROLOGIC: Patient is alert and oriented x3. Cranial nerves II through XII are grossly intact. Motor and sensory are also intact. Normal speech, volume and content. Symmetrical smile. MUSCULOSKELETAL: Normal extremities with adequate strength and full range of motion. No lower extremity swelling or edema. No calf tenderness. LYMPHATICS: No significant lymphadenopathy is noted PSYCHIATRIC: Normal psychiatric evaluation. Limitations: no limitations Course Vital Signs 01/24/19 01/24/19 01/24/19 11:13 12:25 12:30 Temperature 98.9 F Pulse Rate 95 80 Pulse Rate [ 94 Sitting] Pulse Rate [ 82 Standing] Pulse Rate [ 85 Supine] Respiratory 16 18 16 Rate Blood Pressure 115/83 93/60 Blood Pressure 92/73 [Sitting] Blood Pressure 93/60 [Standing] Blood Pressure 105/74 [Supine] O2 Sat by Pulse 95 94 L 97 Oximetry 01/24/19 01/24/19 01/24/19 12:40 12:50 13:00 Temperature Pulse Rate 87 86 81 Pulse Rate [ Sitting] Pulse Rate [ Standing] Pulse Rate [ Supine] Respiratory 18 19 16 Rate Blood Pressure 110/83 110/83 110/83 Blood Pressure [Sitting] Blood Pressure [Standing] Blood Pressure [Supine] O2 Sat by Pulse 94 L 92 L 95 Oximetry 01/24/19 13:10 Temperature Pulse Rate 83 Pulse Rate [ Sitting] Pulse Rate [ Standing] Pulse Rate [ Supine] Respiratory 15 Rate Blood Pressure 113/75 Blood Pressure [Sitting] Blood Pressure [Standing] Blood Pressure [Supine] O2 Sat by Pulse 96 Oximetry Medical Decision Making - Medical Decision Making After patient received fluids he was able to ambulate and felt considerably better. - Lab Data Result diagrams: 01/24/19 12:10 01/24/19 12:10 Lab Results 01/24/19 01/24/19 Range/Units 12:10 12:10 WBC 11.4 H (3.8-10.6) k/uL RBC 4.62 (4.30-5.90) m/uL Hgb 14.2 (13.0-17.5) gm/dL Hct 41.7 (39.0-53.0) % MCV 90.3 (80.0-100.0) fL MCH 30.7 (25.0-35.0) pg MCHC 34.0 (31.0-37.0) g/dL RDW 13.6 (11.5-15.5) % Plt Count 210 (150-450) k/uL Neutrophils % 82 % Lymphocytes % 9 % Monocytes % 5 % Eosinophils % 1 % Basophils % 0 % Neutrophils # 9.4 H (1.3-7.7) k/uL Lymphocytes # 1.0 (1.0-4.8) k/uL Monocytes # 0.6 (0-1.0) k/uL Eosinophils # 0.1 (0-0.7) k/uL Basophils # 0.0 (0-0.2) k/uL Sodium 137 (137-145) mmol/L Potassium 3.5 (3.5-5.1) mmol/L Chloride 103 (98-107) mmol/L Carbon Dioxide 23 (22-30) mmol/L Anion Gap 11 mmol/L BUN 27 H (9-20) mg/dL Creatinine 1.17 (0.66-1.25) mg/dL Est GFR (CKD-EPI)AfAm 76 (>60 ml/min/1.73 sqM) Est GFR (CKD-EPI)NonAf 65 (>60 ml/min/1.73 sqM) Glucose 124 H (74-99) mg/dL Calcium 8.9 (8.4-10.2) mg/dL Total Bilirubin 0.7 (0.2-1.3) mg/dL AST 73 H (17-59) U/L ALT 81 H (21-72) U/L Alkaline Phosphatase 60 (38-126) U/L Total Protein 6.5 (6.3-8.2) g/dL Albumin 3.5 (3.5-5.0) g/dL Amylase 63 (30-110) U/L Lipase 160 (23-300) U/L Disposition Clinical Impression: Acute diarrhea Disposition: HOME SELF-CARE Condition: Good Instructions (If sedation given, give patient instructions): Acute Diarrhea (ED) Is patient prescribed a controlled substance at d/c from ED?: No Referrals: Gian Harper MD [Primary Care Provider] - 1-2 days Time of Disposition: 14:17
[2019-01-24 12:30] LABS: Basophils % (A) 0 %; Eosinophils # (A) 0.1 k/uL (0-0.7); Eosinophils % (A) 1 %; HCT 41.7 % (39.0-53.0); HGB 14.2 gm/dL (13.0-17.5); Lymphocytes % (A) 9 %; MCH 30.7 pg (25.0-35.0); MCV 90.3 fL (80.0-100.0); Mean Platelet Volume 7.4; Monocytes # (A) 0.6 k/uL (0-1.0); Monocytes % (A) 5 %; Neutrophils # (A) 9.4 k/uL (1.3-7.7); Neutrophils % (A) 82 %; Platelet Count 210 k/uL (150-450); RBC 4.62 m/uL (4.30-5.90); RDW 13.6 % (11.5-15.5); WBC 11.4 k/uL (3.8-10.6)
[2019-01-24 12:50] LABS: Albumin 3.5 g/dL (3.5-5.0); Calcium 8.9 mg/dL (8.4-10.2); Potassium 3.5 mmol/L (3.5-5.1); Total Bilirubin 0.7 mg/dL (0.2-1.3); Total Protein 6.5 g/dL (6.3-8.2)
[2019-01-24 14:38] VITALS: BP 118/76; PULSE 85; RESP 18; TEMP 98.6
== END 2019-01-24 14:35 | disposition home or self-care (01) ==
LOC: EC 10:58
DX: R19.7 Diarrhea, unspecified (principal); R42 Dizziness and giddiness; I25.2 Old myocardial infarction; F17.200 Nicotine dependence, unspecified, uncomplicated; Z90.49 Acquired absence of other specified parts of digestive tract; Z95.5 Presence of coronary angioplasty implant and graft
CPT/HCPCS: 36415; 80053; 82150; 83690; 85025; 96360; 99284

== ENCOUNTER 2020-07-28 00:07 | Inpatient (IN) | payer MEDICARE, OTHER ==
[2020-07-28] MEDS ORDERED: SODIUM CHLORIDE 0.9% 500 ML 500 ML IV STA (00:44)
[2020-07-28] MEDS ORDERED: ASPIRIN 81 MG PO STA (00:44)
[2020-07-28] MEDS ORDERED: MORPHINE SULFATE 2 MG/ML SYRINGE IVP STA (00:44)
--- NOTE | 2020-07-28 00:46 | ED ---
General Adult HPI - General Source: patient, RN notes reviewed Mode of arrival: ambulatory Limitations: no limitations <Yash Diane P - Last Filed: 07/28/20 02:22> <Alice Allen P - Last Filed: 07/28/20 04:25> - General Chief complaint: Chest Pain Stated complaint: Chest pain Time Seen by Provider: 07/28/20 00:21 - History of Present Illness Initial comments: 65-year-old male with a past medical history of [place] in 2018 with stents presents to the emergency room for a chief complaint of chest pain. Patient states about 4 days ago he was pulling a deer out of the was and was exerting himself significantly. States he started to feel pain at that time. States the pain has been dull for the past few days. However when he woke up this morning the pain was much worse and radiated down both his arms. Patient does admit he has felt a little clammy today. He has not had nausea. He describes this pain as a squeezing pain in the center of his chest.Patient has no other complaints at this time including shortness of breath, abdominal pain, nausea or vomiting, headache, or visual changes. (Yash Diane) - Related Data Previous Rx's Medication Instructions Recorded Aspirin 81 mg PO DAILY #100 chew 02/19/18 Atorvastatin [Lipitor] 80 mg PO HS #30 tab 02/19/18 Ticagrelor [Brilinta] 90 mg PO BID #60 tab 02/19/18 carvediloL [Coreg] 3.125 mg PO BID-W/MEALS #60 tab 02/19/18 Allergies Allergy/AdvReac Type Severity Reaction Status Date / Time No Known Allergies Allergy Verified 07/28/20 00:14 Review of Systems ROS Other: All systems not noted in ROS Statement are negative. <Yash Diane P - Last Filed: 07/28/20 02:22> ROS Other: All systems not noted in ROS Statement are negative. <Alice Allen P - Last Filed: 07/28/20 04:25> ROS Statement: Those systems with pertinent positive or pertinent negative responses have been documented in the HPI. Past Medical History Past Medical History: Myocardial Infarction ([place]) Additional Past Medical History / Comment(s): R wrist fracture-casted/healed. History of Any Multi-Drug Resistant Organisms: None Reported Past Surgical History: Appendectomy, Heart Catheterization With Stent Additional Past Surgical History / Comment(s): colonoscopy Past Anesthesia/Blood Transfusion Reactions: No Reported Reaction Past Psychological History: No Psychological Hx Reported Smoking Status: Never smoker Past Alcohol Use History: Occasional Past Drug Use History: None Reported - Past Family History Father Family Medical History: No Reported History Additional Family Medical History / Comment(s): Father is at age 76yrs. Pt does not recall cause of . Mother Family Medical History: Congestive Heart Failure (CHF) Additional Family Medical History / Comment(s): Mother at the age of 95 or 96yrs. <Yash Diane P - Last Filed: 07/28/20 02:22> General Exam Limitations: no limitations General appearance: alert, in no apparent distress Head exam: Present: atraumatic, normocephalic, normal inspection Eye exam: Present: normal appearance, PERRL, EOMI. Absent: scleral icterus, conjunctival injection ENT exam: Present: normal exam, mucous membranes moist Neck exam: Present: normal inspection, full ROM. Absent: tenderness, meningismus, lymphadenopathy Respiratory exam: Present: normal lung sounds bilaterally. Absent: respiratory distress, wheezes, rales, rhonchi, stridor Cardiovascular Exam: Present: regular rate, normal rhythm, normal heart sounds. Absent: systolic murmur, diastolic murmur, rubs, gallop, clicks GI/Abdominal exam: Present: soft, normal bowel sounds. Absent: distended, tenderness, guarding, rebound, rigid Extremities exam: Present: normal capillary refill (Radial pulses 2+ in upper extremities bilaterally) Neurological exam: Present: alert Psychiatric exam: Present: normal affect, normal mood <Yash Diane P - Last Filed: 07/28/20 02:22> Course Vital Signs 07/28/20 00:12 Temperature 98.1 F Pulse Rate 92 Respiratory 18 Rate Blood Pressure 162/99 O2 Sat by Pulse 97 Oximetry Medical Decision Making - Lab Data Result diagrams: 07/28/20 00:55 07/28/20 00:55 <Yash Diane P - Last Filed: 07/28/20 02:22> - Lab Data Result diagrams: 07/28/20 00:55 07/28/20 00:55 <Alice Allen - Last Filed: 07/28/20 04:25> - Medical Decision Making Vitals are stable. Patient presents for chest pain with a cardiac history. Symptoms are typical in nature. Troponin elevated at 4. No elevation noted on EKG. Patient was started on heparin as he does not take a blood thinner. Cardiology was paged. (Yash Diane) Patient care discussed with Dr De La Cruz who recommends Heparin, pain management, NPO, plna for cath in morning Dr Harper accepts admission, with consult to cardiology (Alice Allen) - Lab Data Lab Results 07/28/20 07/28/20 07/28/20 Range/Units 00:55 00:55 00:55 WBC 12.7 H (3.8-10.6) k/uL RBC 5.19 (4.30-5.90) m/uL Hgb 16.0 (13.0-17.5) gm/dL Hct 47.7 (39.0-53.0) % MCV 91.8 (80.0-100.0) fL MCH 30.8 (25.0-35.0) pg MCHC 33.5 (31.0-37.0) g/dL RDW 12.9 (11.5-15.5) % Plt Count 248 (150-450) k/uL Neutrophils % 66 % Lymphocytes % 21 % Monocytes % 8 % Eosinophils % 3 % Basophils % 2 % Neutrophils # 8.5 H (1.3-7.7) k/uL Lymphocytes # 2.6 (1.0-4.8) k/uL Monocytes # 1.0 (0-1.0) k/uL Eosinophils # 0.4 (0-0.7) k/uL Basophils # 0.2 (0-0.2) k/uL PT 11.3 (9.0-12.0) sec INR 1.1 (<1.2) APTT 23.1 (22.0-30.0) sec D-Dimer 0.37 (<0.60) mg/L FEU Sodium 138 (137-145) mmol/L Potassium 4.5 (3.5-5.1) mmol/L Chloride 107 (98-107) mmol/L Carbon Dioxide 22 (22-30) mmol/L Anion Gap 9 mmol/L BUN 12 (9-20) mg/dL Creatinine 0.86 (0.66-1.25) mg/dL Est GFR (CKD-EPI)AfAm >90 (>60 ml/min/1.73 sqM) Est GFR (CKD-EPI)NonAf >90 (>60 ml/min/1.73 sqM) Glucose 147 H (74-99) mg/dL Calcium 9.5 (8.4-10.2) mg/dL Magnesium 1.8 (1.6-2.3) mg/dL Total Bilirubin 0.9 (0.2-1.3) mg/dL AST 54 (17-59) U/L ALT 28 (4-49) U/L Alkaline Phosphatase 72 (38-126) U/L Troponin I (0.000-0.034) ng/mL Total Protein 7.3 (6.3-8.2) g/dL Albumin 4.1 (3.5-5.0) g/dL 07/28/20 Range/Units 00:55 WBC (3.8-10.6) k/uL RBC (4.30-5.90) m/uL Hgb (13.0-17.5) gm/dL Hct (39.0-53.0) % MCV (80.0-100.0) fL MCH (25.0-35.0) pg MCHC (31.0-37.0) g/dL RDW (11.5-15.5) % Plt Count (150-450) k/uL Neutrophils % % Lymphocytes % % Monocytes % % Eosinophils % % Basophils % % Neutrophils # (1.3-7.7) k/uL Lymphocytes # (1.0-4.8) k/uL Monocytes # (0-1.0) k/uL Eosinophils # (0-0.7) k/uL Basophils # (0-0.2) k/uL PT (9.0-12.0) sec INR (<1.2) APTT (22.0-30.0) sec D-Dimer (<0.60) mg/L FEU Sodium (137-145) mmol/L Potassium (3.5-5.1) mmol/L Chloride (98-107) mmol/L Carbon Dioxide (22-30) mmol/L Anion Gap mmol/L BUN (9-20) mg/dL Creatinine (0.66-1.25) mg/dL Est GFR (CKD-EPI)AfAm (>60 ml/min/1.73 sqM) Est GFR (CKD-EPI)NonAf (>60 ml/min/1.73 sqM) Glucose (74-99) mg/dL Calcium (8.4-10.2) mg/dL Magnesium (1.6-2.3) mg/dL Total Bilirubin (0.2-1.3) mg/dL AST (17-59) U/L ALT (4-49) U/L Alkaline Phosphatase (38-126) U/L Troponin I 4.150 H* (0.000-0.034) ng/mL Total Protein (6.3-8.2) g/dL Albumin (3.5-5.0) g/dL Disposition Is patient prescribed a controlled substance at d/c from ED?: No Time of Disposition: 02:23 <Yash Diane P - Last Filed: 07/28/20 02:22> Is patient prescribed a controlled substance at d/c from ED?: No <Alice Allen P - Last Filed: 07/28/20 04:25> Clinical Impression: NSTEMI (non-ST elevated myocardial infarction) Disposition: ADMITTED IP TO THIS HOSP Condition: Serious
[2020-07-28 01:06] LABS: Basophils # (A) 0.2 k/uL (0-0.2); Basophils % (A) 2 %; Eosinophils # (A) 0.4 k/uL (0-0.7); Eosinophils % (A) 3 %; HCT 47.7 % (39.0-53.0); Lymphocytes # (A) 2.6 k/uL (1.0-4.8); Lymphocytes % (A) 21 %; MCH 30.8 pg (25.0-35.0); MCHC 33.5 g/dL (31.0-37.0); MCV 91.8 fL (80.0-100.0); Mean Platelet Volume 8.4; Monocytes % (A) 8 %; Neutrophils # (A) 8.5 k/uL (1.3-7.7); Neutrophils % (A) 66 %; Platelet Count 248 k/uL (150-450); RBC 5.19 m/uL (4.30-5.90); RDW 12.9 % (11.5-15.5); WBC 12.7 k/uL (3.8-10.6)
[2020-07-28 01:16] LABS: ALT 28 U/L (4-49); AST 54 U/L (17-59); African American GFR (CKD) >90 (>60 ml/min/1.73 sqM); Albumin 4.1 g/dL (3.5-5.0); Alkaline Phosphatase 72 U/L (38-126); Anion Gap 9 mmol/L; Blood Urea Nitrogen 12 mg/dL (9-20); Calcium 9.5 mg/dL (8.4-10.2); Carbon Dioxide 22 mmol/L (22-30); Chloride 107 mmol/L (98-107); Glucose 147 mg/dL (74-99); Magnesium 1.8 mg/dL (1.6-2.3); Non-African American GFR(CKD) >90 (>60 ml/min/1.73 sqM); Potassium 4.5 mmol/L (3.5-5.1); Sodium 138 mmol/L (137-145); Total Bilirubin 0.9 mg/dL (0.2-1.3); Total Protein 7.3 g/dL (6.3-8.2)
--- NOTE | 2020-07-28 01:32 | XR ---
EXAM: XR Chest, 2 Views CLINICAL HISTORY: Chest pain TECHNIQUE: Frontal and lateral views of the chest. COMPARISON: February 14, 2018 FINDINGS: Lungs: Minimal linear scarring in the left lung base. No acute infiltration, atelectasis or mass density. Pleural space: Unremarkable. No pneumothorax. No pleural fluid. Heart: Unremarkable. No cardiomegaly. Mediastinum: Unremarkable. Bones/joints: Unremarkable. No acute abnormalities. IMPRESSION: No evidence of acute or active process in the chest.
[2020-07-28] MEDS ORDERED: HEPARIN SODIUM,PORCINE 5,000 UNIT/ML 1 ML VIAL IV PRN (01:54)
[2020-07-28] MEDS ORDERED: HEPARIN SODIUM,PORCINE 5,000 UNIT/ML 1 ML VIAL IV ONE (01:54)
[2020-07-28 02:00] LABS: D-Dimer 0.37 mg/L FEU (<0.60); INR 1.1 (<1.2); Partial Thromboplastin Time 23.1 sec (22.0-30.0); Prothrombin Time 11.3 sec (9.0-12.0)
[2020-07-28] MEDS ORDERED: HEPARIN SOD,PORK IN 0.45% NACL 25,000 UNIT in 0.45% NACL 1 250ML.BAG IV SCH (02:00)
[2020-07-28] MEDS ORDERED: NITROGLYCERIN OINT 1 INCH/GM PACKET TOPICAL SCH (06:00)
--- NOTE | 2020-07-28 08:29 | P.CRDCN ---
History of Present Illness Consult date: 07/28/20 Chief complaint: Chest pain History of present illness: This is a very pleasant 65-year-old gentleman with a past medical history significant for coronary artery disease and prior stenting of the RCA and LCx [place] [address] Berrios as well as hypertension and dyslipidemia who presented to the emergency room complaining of chest discomfort. The chest discomfort started this past when he was doing dear hunting and he was pulling a deer. The patient described the pain as a pressure across the chest without any radiations to the arms or neck or shoulders and without any associated symptoms of shortness of breath or sweating or dizziness or lightheadedness or syncope. Currently he stated that his chest pain free. Because the pain was recurrent he decided to come to the emergency department. In the ER the troponin was elevated. The EKG showed sinus rhythm was nonspecific changes in the inferior leads. The chest x-ray showed no acute abnormalities. The patient stated that he was compliant with all of his medications. He was seen this morning in the room with his daughter. Currently he stated that his chest pain free. I had a long discussion with the patient and his daughter regarding the next step and I advised the patient to undergo coronary angiogram for definitive diagnosis. The procedure in details was explained to the patient and his daughter. Meanwhile I will continue the current medical regimen including heparin IV. Also I would continue the aspirin as well as beta shawn. I'm going to add statin with high intensity to the current medical regimen. We'll continue following up with the patient. I already spoke with Dr. Berrios who is going to pursue with a heart catheterization and percutaneous coronary intervention on the patient. Past Medical History Past Medical History: Myocardial Infarction ([place]) Additional Past Medical History / Comment(s): R wrist fracture-casted/healed. Last Myocardial Infarction Date:: 2018 History of Any Multi-Drug Resistant Organisms: None Reported Past Surgical History: Appendectomy, Heart Catheterization With Stent Additional Past Surgical History / Comment(s): colonoscopy, stents x 8 Past Anesthesia/Blood Transfusion Reactions: No Reported Reaction Date of Last Stent Placement:: 2018 Past Psychological History: No Psychological Hx Reported Additional Psychological History / Comment(s): Pt resides with his spouse. He is independent. He works at [employer] in maintenance. He drives. Smoking Status: Never smoker Past Alcohol Use History: Occasional Additional Past Alcohol Use History / Comment(s): Pt states he will smoke an occasional cigar but not often. Past Drug Use History: None Reported - Past Family History Father Family Medical History: No Reported History Additional Family Medical History / Comment(s): Father is at age 76yrs. Pt does not recall cause of . Mother Family Medical History: Congestive Heart Failure (CHF) Additional Family Medical History / Comment(s): Mother at the age of 95 or 96yrs. Medications and Allergies Home Medications Medication Instructions Recorded Confirmed Type Aspirin 81 mg PO DAILY #100 chew 02/19/18 07/28/20 Rx Atorvastatin [Lipitor] 80 mg PO HS #30 tab 02/19/18 07/28/20 Rx Losartan [Cozaar] 25 mg PO HS 07/28/20 07/28/20 History carvediloL [Coreg] 3.125 mg PO HS 07/28/20 07/28/20 History carvediloL [Coreg] 6.25 mg PO DAILY 07/28/20 07/28/20 History Allergies Allergy/AdvReac Type Severity Reaction Status Date / Time No Known Allergies Allergy Verified 07/28/20 07:16 Physical Exam Vitals: Vital Signs Temp Pulse Pulse Resp BP BP BP 07/28/20 06:26 68 19 140/99 07/28/20 06:00 98.7 F 65 19 150/100 07/28/20 04:00 85 18 150/92 140/109 07/28/20 00:12 98.1 F 92 18 162/99 Pulse Ox 07/28/20 06:26 98 07/28/20 06:00 99 07/28/20 04:00 96 07/28/20 00:12 97 Intake and Output 07/27/20 07/28/20 07/28/20 22:59 06:59 14:59 Other: Weight 99.79 kg - Constitutional General appearance: no acute distress - Respiratory Respiratory: bilateral: CTA - Cardiovascular Rhythm: regular Heart sounds: normal: S1, S2 Abnormal Heart Sounds: systolic murmur Results 07/28/20 00:55 07/28/20 00:55 Cardiac Enzymes 07/28/20 07/28/20 07/28/20 Range/Units 00:55 00:55 04:54 AST 54 (17-59) U/L Troponin I 4.150 H* 5.770 H* (0.000-0.034) ng/mL Coagulation 07/28/20 Range/Units 00:55 PT 11.3 (9.0-12.0) sec APTT 23.1 (22.0-30.0) sec CBC 07/28/20 Range/Units 00:55 WBC 12.7 H (3.8-10.6) k/uL RBC 5.19 (4.30-5.90) m/uL Hgb 16.0 (13.0-17.5) gm/dL Hct 47.7 (39.0-53.0) % Plt Count 248 (150-450) k/uL Comprehensive Metabolic Panel 07/28/20 Range/Units 00:55 Sodium 138 (137-145) mmol/L Potassium 4.5 (3.5-5.1) mmol/L Chloride 107 (98-107) mmol/L Carbon Dioxide 22 (22-30) mmol/L BUN 12 (9-20) mg/dL Creatinine 0.86 (0.66-1.25) mg/dL Glucose 147 H (74-99) mg/dL Calcium 9.5 (8.4-10.2) mg/dL AST 54 (17-59) U/L ALT 28 (4-49) U/L Alkaline Phosphatase 72 (38-126) U/L Total Protein 7.3 (6.3-8.2) g/dL Albumin 4.1 (3.5-5.0) g/dL Current Medications Generic Name Dose Route Start Last Admin Trade Name Freq PRN Reason Stop Dose Admin Aspirin 325 mg 07/29/20 09:00 Aspirin 325 Mg Tab PO DAILY [facility] Heparin Sodium (Porcine) 0 unit 07/28/20 01:54 Heparin Sodium,Porcine 5,000 Unit/Ml 1 Ml Vial IV PER PROTOCOL PRN Low PTT Protocol Heparin Sodium/Sodium Chloride 250 mls @ 9.979 mls/hr 07/28/20 02:00 07/28/20 02:30 25,000 unit/ Sodium Chloride IV 10 units/kg/hr .Q24H VIRI 9.979 mls/hr Administration Protocol 10 UNITS/KG/HR Metoprolol Tartrate 25 mg 07/28/20 09:00 07/28/20 07:48 Metoprolol Tartrate 25 Mg Tab PO 25 mg BID [facility] Administration Nitroglycerin 1 inch 07/28/20 06:00 07/28/20 06:25 Nitroglycerin Oint 1 Inch/Gm Packet TOPICAL 1 inch Q6HR VIRI Administration Intake and Output 07/27/20 07/28/20 07/28/20 22:59 06:59 14:59 Other: Weight 99.79 kg 07/28/20 00:55 07/28/20 00:55 Assessment and Plan Assessment: Assessment #1 acute coronary syndrome. #2 known coronary artery disease and prior percutaneous coronary intervention on LCx and RCA #3 hypertension #4 dyslipidemia Plan #1 continue the current medical regimen including heparin and aspirin and beta shawn #2 add high intensity statin to the current medical regimen #3 proceed with coronary angiogram #4 obtain an echocardiogram was Doppler #5 follow-up with the patient
[2020-07-28] MEDS ORDERED: IV FLUID CONTINUATION 1,000 ML IV ONE (08:57)
[2020-07-28] MEDS ORDERED: SODIUM CHLORIDE 0.9% 1,000 ML IV ONE (08:58)
[2020-07-28] MEDS ORDERED: METOPROLOL TARTRATE 25 MG TAB PO SCH (09:00)
[2020-07-28] MEDS ORDERED: MIDAZOLAM 2 MG/2 ML VIAL IVP ONE (09:29)
[2020-07-28] MEDS ORDERED: LIDOCAINE 1% INJ 10MG/ML (20 ML MDV) SQ ONE (09:31)
[2020-07-28] MEDS: HEPARIN SODIUM 1,000 UN/ML (10ML VL) IV ONE ×4 (09:45→10:22)
[2020-07-28] MEDS ORDERED: TIROFIBAN BOLUS 12.5MG/250 ML BAG IV ONE (09:46)
[2020-07-28] MEDS ORDERED: TIROFIBAN 12.5MG-250ML NS 250 ML IV ONE (09:46)
[2020-07-28] MEDS ORDERED: IOPAMIDOL-370 100ML BTL INJ ONE ×2 (10:05→10:40)
[2020-07-28] MEDS: niCARdipine Syringe (1,000 mcg/10 mL) INTRACORON ONE ×2 (10:28→10:35)
[2020-07-28] MEDS ORDERED: TICAGRELOR 90 MG TAB PO ONE (10:43)
[2020-07-28] MEDS: SODIUM CHLORIDE 0.9% 1,000 ML IV SCH (10:56)
[2020-07-28] MEDS ORDERED: ONDANSETRON 4 MG/2 ML VIAL IVP PRN (12:45)
[2020-07-28] MEDS: ATORVASTATIN 80 MG TAB PO SCH (19:54)
[2020-07-28] MEDS: LOSARTAN 25 MG TAB PO SCH (19:55)
[2020-07-28] MEDS: carvediloL 3.125 MG TAB PO SCH (19:55)
--- NOTE | 2020-07-28 23:19 | CC ---
CARDIAC CATHETERIZATION REPORT DATE OF SERVICE: 07/28/2020 PROCEDURES: 1. Left heart catheterization and coronary angiography. 2. Percutaneous transluminal coronary angioplasty and stenting of proximal right coronary artery with a drug-eluting stent. 3. Aspiration thrombectomy of a thrombus-laden dominant right coronary artery. PERFORMED BY: Dr. Sun Berrios. Moderate conscious sedation time was 69 minutes. Patient was administered Versed. Oxygen saturation, hemodynamics and EKG were monitored closely. CLINICAL INFORMATION: Mr. Xavier Stover is a 65-year-old gentleman with a known history of CAD and hypertension and hyperlipidemia. In January and February of 2018 I performed stenting of a totally occluded RCA which appeared like a subtotal occlusion after he had inferior MA. A few days later, I performed stenting of his circumflex, which was also tightly stenosed. He did well until lately, but he comes into the hospital late last night complaining of chest pressure that was actually going on from night onwards, on and off, waxing and waning. Troponin was up to 6.0. His EKG revealed a very subtle inferior ST-segment elevation of about half a millimeter. He was advised intervention and brought from the emergency room. PROCEDURE NOTE: Under local anesthesia and strict aseptic precautions, a 6-Czech introducer was placed in the right femoral artery. Using standard Chele catheters, I performed coronary angiography, and I also used the same right Chele catheter to check LV pressures. I did not perform LV gram. I noted that there was a total occlusion of the dominant RCA proximal to the site of previous stenting, and I proceeded to perform intervention in the same setting. Following the intervention, the sheath was taken out and Angio-Seal device used to secure hemostasis and he was sent to the room in a stable condition. CARDIAC CATHETERIZATION FINDINGS: The left ventricular end-diastolic pressure was 12-13 mmHg without any gradient across the aortic valve. CORONARY ANGIOGRAPHY FINDINGS: RIGHT CORONARY ARTERY: Large dominant vessel, totally occluded in the proximal portion and is filled with thrombus. A significant amount of thrombus was noted. There was no antegrade flow noted. LEFT MAIN CORONARY ARTERY: Short, patent, disease-free vessel that bifurcates into LAD and circumflex. LEFT ANTERIOR DESCENDING CORONARY ARTERY: Fair-caliber vessel, gives off septal and diagonal branches, runs all the way to the apex, has minor irregularities of 30% to 35% noted in the proximal half of the vessel. A good-sized diagonal branch comes off in the mid portion and runs all the way to the lateral wall. LAD beyond the diagonal has no significant disease. LAD provides collaterals to the PDA branch of RCA. LEFT POSTERIOR CIRCUMFLEX CORONARY ARTERY: Nondominant vessel, has small obtuse marginal proximally, then in the mid portion gives off a large obtuse marginal, free of significant disease, and the AV groove branch which was stented and also the circumflex that was stented are both widely patent with remarkably good flow. No significant disease noted other than a 30% to 35% narrowing in the groove branch. The left atrial circumflex branch is also free of significant disease. FINAL IMPRESSION: This patient has normal filling pressures. No gradient across the aortic valve. Totally occluded dominant RCA with some collaterals from the left system. LAD has minor irregularities. Circumflex that was stented previously is patent with good flow. RECOMMENDATIONS: I recommended PCI of RCA and proceeded to perform this in the same setting. PERCUTANEOUS CORONARY INTERVENTION PROCEDURE DETAILS: I used a standard right Chele guide catheter to cannulate the right coronary artery. A Whisper wire was used to cross the lesion. Wire was kept distally. Using a 2.5 caliber Trek balloon of 15 mm length, I gave multiple inflations proximal to the stented segment where there was total occlusion and also within the stented segment. There was only a modest improvement. The entire vessel seemed to be filled with thrombus. After some deliberation, I used an Eloy catheter, and with this I performed aspiration atherectomy from the distal to the proximal portion, and a substantial amount of thrombus was recovered. After this, there was improvement in flow noted. I then used a 3.5 caliber NC Trek balloon, and with this I dilated the entire stented segment and also proximal to the stented segment. Distally beyond the stented segment where PLV branch comes off also, I used the same balloon at low pressures of 3 atmospheres. I gave nicardipine intracoronary. This improved the flow substantially. I then deployed a 15 mm long 4.0 caliber Xience stent at the site of total occlusion with excellent result. Just beyond the stented area where the 3.5 stent was, there I gave an inflation with a 3.5 balloon, but there still persisted an area of haziness, and I used another 4.0 caliber 8 mm stent and telescoped this into the previously placed stent. This was also deployed at 13 atmospheres. I therefore deployed 2 stents. There was a good VALENCIA-3 flow noted. Excellent angiographic result without complication was achieved. The sheath was taken out and Angio-Seal device secured and the patient was sent to the room in stable condition. MMJOSE / ALICE: [id number] /
--- NOTE | 2020-07-28 23:48 | HP ---
HISTORY AND PHYSICAL CHIEF COMPLAINT: Chest pain. HISTORY OF PRESENT ILLNESS: This gentleman presented to the emergency room with chest pain. He has had a prior history of coronary artery disease and myocardial infarction. He presented to the main emergency room with chest pain and was found to have an NSTEMI with an extremely high troponin. He has been taken to the lab aide. REVIEW OF SYSTEMS: Review of systems is deferred. Past medical history reveals that he is not allergic to any medications. He is on Coreg 3.125 mg two in the morning, one in the evening, 81 mg of aspirin, losartan 25 once a day and Lipitor 80. His AR was in 2018. He is not a smoker. PHYSICAL EXAMINATION: Physical exam is deferred. He is admitted to the hospital with diagnoses: 1. Non ST-elevation myocardial infarction. 2. History of coronary artery disease with previous myocardial infarction. PLAN: Await results cardiac cath and follow with Cardiology. MMODL / IJN: [id number] /
[2020-07-29] MEDS: SODIUM CHLORIDE 0.9% 1,000 ML IV SCH (02:29)
[2020-07-29] MEDS ORDERED: ASPIRIN 325 MG TAB PO SCH (09:00)
[2020-07-29 09:18] LABS: Basophils % (A) 1 %; Eosinophils # (A) 0.1 k/uL (0-0.7); Eosinophils % (A) 1 %; HGB 13.2 gm/dL (13.0-17.5); Lymphocytes # (A) 1.7 k/uL (1.0-4.8); Lymphocytes % (A) 19 %; MCH 30.9 pg (25.0-35.0); MCV 93.7 fL (80.0-100.0); Mean Platelet Volume 7.9; Monocytes # (A) 0.7 k/uL (0-1.0); Monocytes % (A) 8 %; Neutrophils % (A) 69 %; Platelet Count 191 k/uL (150-450); RBC 4.27 m/uL (4.30-5.90); RDW 13.1 % (11.5-15.5); WBC 8.7 k/uL (3.8-10.6)
[2020-07-29 09:33] LABS: African American GFR (CKD) >90 (>60 ml/min/1.73 sqM); Anion Gap 3 mmol/L; Blood Urea Nitrogen 11 mg/dL (9-20); Calcium 8.6 mg/dL (8.4-10.2); Carbon Dioxide 28 mmol/L (22-30); Chloride 108 mmol/L (98-107); Cholesterol 75 mg/dL (<200); Glucose 103 mg/dL (74-99); HDL Cholesterol 28 mg/dL (40-60); LDL Cholesterol,Calculated 30 mg/dL (0-99); Non-African American GFR(CKD) 86 (>60 ml/min/1.73 sqM); Potassium 4.1 mmol/L (3.5-5.1); Sodium 139 mmol/L (137-145); Triglycerides 87 mg/dL (<150)
[2020-07-29] MEDS: ASPIRIN 81 MG PO SCH (09:38)
[2020-07-29] MEDS: TICAGRELOR 90 MG TAB PO SCH ×2 (09:38→21:14)
[2020-07-29] MEDS: carvediloL 6.25 MG TAB PO SCH (09:38)
--- NOTE | 2020-07-29 10:27 | P.PN ---
Subjective Progress Note Date: 07/29/20 This is a 65-year-old gentleman with past medical history significant for coronary artery disease and prior PCI of the RCA and circumflex [place] [address] Berrios, history also of hyperlipidemia, hypertension, who presented to the hospital with chest discomfort, ruled in for non-ST elevation myocardial infarction. He was taken to the cardiac catheterization lab yesterday where he underwent angioplasty and stenting of the right coronary artery. Patient also underwent aspiration thrombectomy of the dominant right coronary artery. His troponin peaked at 13.7. Blood pressure this morning 105/60 with a heart rate in the 70s, 95% on room air. White blood cell count 8.7, hemoglobin 13.2, platelet count 191. Sodium 139, potassium 4.1, BUN 11, creatinine 0.9. EKG was reviewed this morning which shows a normal sinus rhythm with mild persistent ST elevation noted in the inferior leads. Patient seen and examined this morning, denies any chest pain or difficulty in breathing. Objective - Vital Signs Vital signs: Vital Signs Temp 97.9 F 07/29/20 08:00 Pulse 74 07/29/20 08:00 Resp 18 07/29/20 08:00 BP 105/64 07/29/20 08:00 Pulse Ox 95 07/29/20 08:00 Intake & Output 07/28/20 07/29/20 07/29/20 18:59 06:59 18:59 Intake Total 875 930 Output Total 1450 400 Balance -575 530 Weight 105 kg Intake: IV 755 Intake, IV Titration 450 Amount Sodium Chloride 0.9% 1, 450 000 ml @ 75 mls/hr IV . [id number] [facility] Rx#:[id number] Oral 120 480 Output: Urine 1450 400 Other: # Voids 2 1 # Bowel Movements 0 - Exam PHYSICAL EXAMINATION: GENERAL: 65-year-old gentleman in no acute distress at the time of my examination HEENT: Head is atraumatic, normocephalic. Pupils equal, round. Sclera anicteric. Conjunctiva are clear. Mucous membranes of the mouth are moist. Neck is supple. There is no elevated jugular venous pressure. No carotid bruit is heard. HEART EXAMINATION: Heart S1, S2 normal. No murmur or gallop heard. CHEST EXAMINATION: Lungs are clear to auscultation and precussion. No chest wall tenderness is noted on palpation or with deep breathing. ABDOMEN: Soft, nontender. Bowel sounds are heard. No organomegaly noted. EXTREMITIES: 2+ peripheral pulses with no evidence of peripheral edema and no calf tenderness noted. Right groin soft, no evidence of any hematoma. NEUROLOGIC patient is awake, alert and oriented 3 . . - Labs CBC & Chem 7: 07/29/20 08:24 07/29/20 08:24 Labs: Abnormal Lab Results - Last 24 Hours (Table) 07/28/20 07/28/20 07/29/20 Range/Units 15:25 18:23 08:24 RBC 4.27 L (4.30-5.90) m/uL Chloride (98-107) mmol/L Glucose (74-99) mg/dL Troponin I 13.700 H* 12.300 H* (0.000-0.034) ng/mL HDL Cholesterol (40-60) mg/dL 07/29/20 Range/Units 08:24 RBC (4.30-5.90) m/uL Chloride 108 H (98-107) mmol/L Glucose 103 H (74-99) mg/dL Troponin I (0.000-0.034) ng/mL HDL Cholesterol 28 L (40-60) mg/dL Assessment and Plan Plan: Assessment and plan #1 non-ST elevation myocardial infarction, status post thrombectomy and PCI with stenting of the RCA #2 known history of coronary artery disease with prior RCA and circumflex stenting #3 hypertension #4 hyperlipidemia Plan We will review the patient's echocardiogram with Doppler study. Continue Ecotrin 81 mg daily, Lipitor 80 mg daily, Coreg 6.25 mg in the morning, 3.12 5 in the evening, losartan 25 mg daily and Brilinta 90 mg one tablet by mouth twice a day. Continue to monitor the patient. DNP note has been reviewed, I agree with a documented findings and plan of care. Patient was seen and examined.
[2020-07-29] MEDS: ATORVASTATIN 80 MG TAB PO SCH (21:14)
[2020-07-29] MEDS: carvediloL 3.125 MG TAB PO SCH (21:15)
[2020-07-29] MEDS: LOSARTAN 25 MG TAB PO SCH (21:15)
[2020-07-30] MEDS: TICAGRELOR 90 MG TAB PO SCH (08:35)
[2020-07-30] MEDS: carvediloL 6.25 MG TAB PO SCH (08:35)
[2020-07-30] MEDS: ASPIRIN 81 MG PO SCH (08:35)
[2020-07-30 08:45] VITALS: BP 125/69; PULSE 87; RESP 20; TEMP 98.6
[2020-07-30 09:55] LABS: Basophils % (A) 1 %; Eosinophils # (A) 0.3 k/uL (0-0.7); Eosinophils % (A) 4 %; HCT 41.4 % (39.0-53.0); HGB 13.7 gm/dL (13.0-17.5); Lymphocytes # (A) 1.1 k/uL (1.0-4.8); Lymphocytes % (A) 15 %; MCV 93.7 fL (80.0-100.0); Mean Platelet Volume 7.6; Monocytes # (A) 0.4 k/uL (0-1.0); Monocytes % (A) 6 %; Neutrophils # (A) 5.2 k/uL (1.3-7.7); Neutrophils % (A) 74 %; Platelet Count 200 k/uL (150-450); RBC 4.41 m/uL (4.30-5.90)
--- NOTE | 2020-07-30 10:35 | P.PN ---
Subjective Progress Note Date: 07/30/20 This is a 65-year-old gentleman with past medical history significant for coronary artery disease and prior PCI of the RCA and circumflex [place] [address] eBrrios, history also of hyperlipidemia, hypertension, who presented to the hospital with chest discomfort, ruled in for non-ST elevation myocardial infarction. He was taken to the cardiac catheterization lab yesterday where he underwent angioplasty and stenting of the right coronary artery. Patient also underwent aspiration thrombectomy of the dominant right coronary artery. His troponin peaked at 13.7. Blood pressure this morning 105/60 with a heart rate in the 70s, 95% on room air. White blood cell count 8.7, hemoglobin 13.2, platelet count 191. Sodium 139, potassium 4.1, BUN 11, creatinine 0.9. EKG was reviewed this morning which shows a normal sinus rhythm with mild persistent ST elevation noted in the inferior leads. Patient seen and examined this morning, denies any chest pain or difficulty in breathing. 07/30/2020 Patient seen and examined this morning, denies any chest discomfort, breathing is stable. He's been up ambulating in his room without any difficulty. Echocardiogram with Doppler study remains pending. Blood pressure 125/68, heart rate in the 80s, 97% on room air. White blood cell count 7.0, hemoglobin 13.7, platelet count 200. Objective - Vital Signs Vital signs: Vital Signs Temp 98.6 F 07/30/20 08:00 Pulse 87 07/30/20 08:00 Resp 20 07/30/20 08:00 BP 125/69 07/30/20 08:00 Pulse Ox 97 07/30/20 08:00 Intake & Output 07/29/20 07/30/20 07/30/20 18:59 06:59 18:59 Intake Total 480 240 120 Output Total 800 Balance 480 -560 120 Weight 101.2 kg Intake: Oral 480 240 120 Output: Urine 800 Other: # Voids 1 2 # Bowel Movements 0 - Exam PHYSICAL EXAMINATION: GENERAL: 65-year-old gentleman in no acute distress at the time of my examination HEENT: Head is atraumatic, normocephalic. Pupils equal, round. Sclera anicteric. Conjunctiva are clear. Mucous membranes of the mouth are moist. Neck is supple. There is no elevated jugular venous pressure. No carotid bruit is heard. HEART EXAMINATION: Heart S1, S2 normal. No murmur or gallop heard. CHEST EXAMINATION: Lungs are clear to auscultation and precussion. No chest wall tenderness is noted on palpation or with deep breathing. ABDOMEN: Soft, nontender. Bowel sounds are heard. No organomegaly noted. EXTREMITIES: 2+ peripheral pulses with no evidence of peripheral edema and no calf tenderness noted. Right groin soft, no evidence of any hematoma. NEUROLOGIC patient is awake, alert and oriented 3 . . - Labs CBC & Chem 7: 07/30/20 09:18 07/29/20 08:24 Assessment and Plan Plan: Assessment and plan #1 non-ST elevation myocardial infarction, status post thrombectomy and PCI with stenting of the RCA #2 known history of coronary artery disease with prior RCA and circumflex stenting #3 hypertension #4 hyperlipidemia Plan From cardiology's perspective, patient may be able to be discharged home today. We'll make a follow-up appointment in the office in one week. Discharge medications include aspirin 81 mg daily, Lipitor 80 mg daily, Coreg 6.25 mg daily in the morning, 3.125 mg daily in the evening, Cozaar 25 mg daily, Brilinta 90 mg one tablet by mouth twice a day and sublingual nitroglycerin as needed for chest pain. DNP note has been reviewed, I agree with a documented findings and plan of care. Patient was seen and examined.
--- NOTE | 2020-07-31 20:00 | ECHOF ---
Referral Reason:NSTEMI MEASUREMENTS -------- HEIGHT: 152.4 cm WEIGHT: 104.3 kg BP: IVSd: 1.3 cm (0.6 - 1.1) LVIDd: 3.5 cm (3.9 - 5.3) LVPWd: 1.5 cm (0.6 - 1.1) IVSs: 1.9 cm LVIDs: 2.8 cm LVPWs: 1.6 cm RVIDd: 3.1 cm (< 3.3) Ao Diam: 3.0 cm (2.0 - 3.7) AV Cusp: 2.1 cm (1.5 - 2.6) EPSS: 0.4 cm MV E Randell: 0.47 m/s MV DecT: 276 ms MV A Randell: 0.69 m/s MV E/A Ratio: 0.67 RAP: 5.00 mmHg RVSP: 13.62 mmHg MV EF SLOPE: 79.62 mm/s (70 - 150) MV EXCURSION: 16.49 mm (> 18.000) FINDINGS -------- Sinus rhythm. This was a techncally difficult study with suboptimal views, , Definity utilized for enhancement of i mages. The left ventricular size is normal. There is mild concentric left ventricular hypertrophy. Overa ll left ventricular systolic function is low-normal with, an EF between 50 - 55 %. Basal inferior L V wall motion is hypokinetic. The right ventricle is normal in size. The left atrial size is normal. The right atrial size is normal. The aortic valve is trileaflet, and appears structurally normal. No aortic stenosis or regurgitation. Mild mitral regurgitation is present. Mild tricuspid regurgitation present. Right ventricular systolic pressure is normal at < 35 mmHg. There is no pulmonic regurgitation present. The aortic root size is normal. Echo free space indicative of a pericardial fat pad. CONCLUSIONS -------- 1. This was a techncally difficult study with suboptimal views, , Definity utilized for enhancement o f images. 2. The left ventricular size is normal. 3. There is mild concentric left ventricular hypertrophy. 4. Overall left ventricular systolic function is low-normal with, an EF between 50 - 55 %. 5. Basal inferior LV wall motion is hypokinetic. 6. The right ventricle is normal in size. 7. The left atrial size is normal. 8. The right atrial size is normal. 9. Mild mitral regurgitation is present. 10. Mild tricuspid regurgitation present. 11. Right ventricular systolic pressure is normal at < 35 mmHg. 12. The aortic root size is normal. 13. Echo free space indicative of a pericardial fat pad. HIV/AIDS CARE NURSE: Breann Elizalde RDCS
== END 2020-07-30 12:56 | disposition home or self-care (01) | DRG 247 ==
LOC: EC 00:07 → 3SCARD 03:15
PROVIDERS: ADMIT Family Medicine; ATTEND Family Medicine
PROC: B2111ZZ Fluoroscopy of Multiple Coronary Arteries using Low Osmolar Contrast (ICD-10-PCS; principal; 2020-07-28 17:30)
PROC: 027035Z Dilation of Coronary Artery, One Artery with Two Drug-eluting Intraluminal Devices, Percutaneous Approach (ICD-10-PCS; principal; 2020-07-28 17:30)
PROC: 4A023N7 Measurement of Cardiac Sampling and Pressure, Left Heart, Percutaneous Approach (ICD-10-PCS; principal; 2020-07-28 17:30)
PROC: 02C03ZZ Extirpation of Matter from Coronary Artery, One Artery, Percutaneous Approach (ICD-10-PCS; principal; 2020-07-28 17:30)
DX: I21.4 Non-ST elevation (NSTEMI) myocardial infarction (principal); E78.5 Hyperlipidemia, unspecified; I10 Essential (primary) hypertension; I25.10 Atherosclerotic heart disease of native coronary artery without angina pectoris; I25.2 Old myocardial infarction; Z72.0 Tobacco use; Z79.02 Long term (current) use of antithrombotics/antiplatelets; Z79.82 Long term (current) use of aspirin; Z79.899 Other long term (current) drug therapy; Z82.49 Family history of ischemic heart disease and other diseases of the circulatory system; Z95.5 Presence of coronary angioplasty implant and graft; Z90.49 Acquired absence of other specified parts of digestive tract
CPT/HCPCS: 36415; 71046; 80048; 80053; 80061; 83735; 84484; 85025; 85347; 85379; 85610; 85730; 93005; 93306; 93458; 96361; 96365; 96366; 96375; 96376; 99285